=== PATIENT | female | born 1935 | race Caucasian/White ===

== ENCOUNTER 2017-06-02 18:05 | Observation (INO) | payer MEDICARE ==
[2017-06-02] MEDS ORDERED: ASPIRIN 325 MG TAB PO STA (18:43)
[2017-06-02 18:54] LABS: Basophils % (A) 0 %; CHCM 33.2; Eosinophils # (A) 0.2 k/uL (0-0.7); Eosinophils % (A) 2 %; HCT 37.4 % (34.0-46.0); HDW 2.19; HGB 12.3 gm/dL (11.4-16.0); Luc # (Auto) 0.18; Luc % (Auto) 2; Lymphocytes # (A) 2.1 k/uL (1.0-4.8); Lymphocytes % (A) 25 %; MCH 31.8 pg (25.0-35.0); MCHC 32.9 g/dL (31.0-37.0); MCV 96.6 fL (80.0-100.0); Mean Platelet Volume 7.4; Monocytes # (A) 0.4 k/uL (0-1.0); Monocytes % (A) 4 %; Neutrophils # (A) 5.4 k/uL (1.3-7.7); Neutrophils % (A) 66 %; RBC 3.88 m/uL (3.80-5.40); RDW 13.4 % (11.5-15.5); WBC 8.2 k/uL (3.8-10.6); WBC (Perox) 7.92
--- NOTE | 2017-06-02 18:58 | ED ---
Chest Pain HPI - General Chief Complaint: Chest Pain Stated Complaint: CHEST DISCOMFORT, DIZZINESS Time Seen by Provider: 06/02/17 18:12 Source: patient Mode of arrival: wheelchair Limitations: no limitations - History of Present Illness Initial Comments: Patient is an 82-year-old female presents with a chief complaint of chest pain started between 5:30 and 6:00 today. Patient was on her way to a family member' s house with her when she had an acute onset of pressure type chest pain that was substernal and radiated to her back. Patient admits to lightheadedness, diaphoresis during that time. The episode lasted about a half hour, and resolved spontaneously. Patient states that she had other similar episodes however they did not last long, and she did not have diaphoresis or lightheadedness along with them. Patient cannot describe any aggravating or alleviating factors. Currently patient is chest pain-free. Patient has never had a cardiac stress test. Patient is a significant history of hypertension and a questionable family cardiac history. MD Complaint: chest pain Onset/Timin -: minutes(s) Onset: during rest Pain Location: substernal Pain Radiation: back Severity: moderate Quality: heaviness Consistency: constant Improves With: nothing Worsens With: nothing Anginal Symptoms: diaphoresis, dyspnea Treatments Prior to Arrival: none - Related Data On Oral Contraceptives: No Home Medications Medication Instructions Recorded Confirmed Atenolol/Chlorthalidone 1 tab PO DAILY 07/15/14 06/02/17 [Atenolol-Chlorthal 50-25 Tb] Levothyroxine Sodium [Synthroid] 75 mcg PO DAILY 07/15/14 06/02/17 Lisinopril [Zestril] 5 mg PO DAILY 07/15/14 06/02/17 Calcium Carbonate [Calcium] 600 mg PO DAILY 06/02/17 06/02/17 Vit C/E/Zn/Coppr/Lutein/Zeaxan 1 cap PO DAILY 06/02/17 06/02/17 [Preservision Areds 2 Softgel] Allergies Allergy/AdvReac Type Severity Reaction Status Date / Time No Known Allergies Allergy Verified 06/02/17 19:49 Review of Systems ROS Statement: Those systems with pertinent positive or pertinent negative responses have been documented in the HPI. ROS Other: All systems not noted in ROS Statement are negative. Constitutional: Denies: fever, chills Eyes: Denies: vision change ENT: Denies: ear pain, throat pain Respiratory: Denies: dyspnea, wheezes Cardiovascular: Reports: chest pain Endocrine: Denies: fatigue Gastrointestinal: Denies: nausea, vomiting Genitourinary: Denies: dysuria Musculoskeletal: Reports: back pain Skin: Denies: rash Neurological: Denies: headache Psychiatric: Reports: as per HPI Hematological/Lymphatic: Reports: as per HPI Past Medical History Past Medical History: Hypertension History of Any Multi-Drug Resistant Organisms: None Reported Past Surgical History: Appendectomy, Cholecystectomy Past Anesthesia/Blood Transfusion Reactions: No Reported Reaction Past Psychological History: No Psychological Hx Reported Smoking Status: Never smoker Past Alcohol Use History: None Reported Past Drug Use History: None Reported General Exam Limitations: no limitations General appearance: alert, in no apparent distress Head exam: Present: atraumatic, normocephalic Eye exam: Present: normal appearance, PERRL ENT exam: Present: normal exam, normal oropharynx. Absent: mucous membranes dry Neck exam: Present: normal inspection Respiratory exam: Present: normal lung sounds bilaterally. Absent: respiratory distress, wheezes Cardiovascular Exam: Present: regular rate, normal rhythm, normal heart sounds GI/Abdominal exam: Present: soft. Absent: distended, tenderness Rectal exam: Present: deferred Extremities exam: Present: normal inspection. Absent: pedal edema, joint swelling Back exam: Present: normal inspection Neurological exam: Present: alert, oriented X3 Psychiatric exam: Present: normal affect, normal mood Skin exam: Present: warm, dry, intact Course Vital Signs 06/02/17 06/02/17 06/02/17 18:08 18:54 20:42 Temperature 96.7 F L 98.6 F Pulse Rate 65 66 56 L Respiratory 17 16 16 Rate Blood Pressure 156/67 138/71 187/79 O2 Sat by Pulse 97 100 100 Oximetry Chest Pain MDM - Core Measures AMI Core Measures Followed: Yes - MDM Patient presents with a chief complaint of chest pain with radiation to the back , diaphoresis, and lightheadedness. On initial evaluation patient is mildly hypertensive, otherwise vital signs are stable. EKG performed at 1815 shows sinus rhythm with PACs. Ventricular rate is 60 bpm. Segments appear to be within normal limits, when compared with previous study performed on 12/25/2014 , EKG is similar. Patient was given aspirin on initial evaluation. History and physical examination are consistent and concerning for ACS. We'll send basic, cardiac workup. We'll plan to admit patient for cardiac stress test. Patient is not currently experiencing any chest pain. 8:36 PM Lab evaluation this patient is unremarkable. Patient remained stable in the emergency department. Initial troponin is negative. Patient is a magnesium level I.5, this will be replaced in the emergency department. Currently pending call back from admitting physician. 8:58 PM I spoke with Dr. Mclean who accepts admission of this patient with consults to the on-call log chipper operator. Reviewed the care plan with patient, she and her family are agreeable. Disposition Clinical Impression: Moderate risk chest pain, Hypomagnesemia Disposition: ADMITTED IP TO THIS HOSP Condition: Good Instructions: Chest Pain (ED) Referrals: Julian Frazier MD [Primary Care Provider] - 1-2 days Decision to Admit Reason: Admit from EC Decision Date: 06/02/17 Decision Time: 21:00 - Out of Hospital Transfer - Req. Specs Out of Hospital Transfer - Requested Specifics: Telemetry Unit
[2017-06-02 19:00] LABS: INR 1.1 (<1.2); Prothrombin Time 10.7 sec (9.0-12.0)
[2017-06-02 19:03] LABS: Anion Gap 9 mmol/L; Blood Urea Nitrogen 25 mg/dL (7-17); Calcium 9.2 mg/dL (8.4-10.2); Carbon Dioxide 27 mmol/L (22-30); Chloride 98 mmol/L (98-107); Glucose 175 mg/dL (74-99); Magnesium 1.5 mg/dL (1.6-2.3); Non-African American GFR(MDRD) 54 (>60 ml/min/1.73 sqM); Potassium 3.3 mmol/L (3.5-5.1); Sodium 134 mmol/L (137-145)
[2017-06-02] MEDS ORDERED: NALOXONE 0.4 MG/ML 1 ML VIAL IV PRN (21:01)
[2017-06-02] MEDS: MAGNESIUM SULFATE-D5W PMX 1 GM in DEXTROSE/WATER 1 100ML.BAG IVPB SCH ×2 (21:11→23:35)
[2017-06-02 22:07] VITALS: BMI 21.9
[2017-06-03] MEDS ORDERED: LEVOTHYROXINE 75 MCG TAB PO SCH (06:30)
[2017-06-03 07:04] LABS: Basophils % (A) 0 %; CH 31.9; CHCM 33.3; Eosinophils # (A) 0.2 k/uL (0-0.7); Eosinophils % (A) 2 %; HCT 37.2 % (34.0-46.0); HDW 2.16; HGB 12.2 gm/dL (11.4-16.0); Luc # (Auto) 0.18; Luc % (Auto) 2; Lymphocytes # (A) 1.9 k/uL (1.0-4.8); Lymphocytes % (A) 22 %; MCH 31.6 pg (25.0-35.0); MCHC 32.8 g/dL (31.0-37.0); MCV 96.2 fL (80.0-100.0); Mean Platelet Volume 7.3; Monocytes # (A) 0.5 k/uL (0-1.0); Monocytes % (A) 6 %; Neutrophils # (A) 5.6 k/uL (1.3-7.7); Neutrophils % (A) 67 %; RBC 3.87 m/uL (3.80-5.40); WBC 8.2 k/uL (3.8-10.6)
[2017-06-03 07:31] LABS: Anion Gap 7 mmol/L; Blood Urea Nitrogen 17 mg/dL (7-17); Calcium 9.2 mg/dL (8.4-10.2); Carbon Dioxide 29 mmol/L (22-30); Chloride 100 mmol/L (98-107); Glucose 87 mg/dL (74-99); Non-African American GFR(MDRD) >60 (>60 ml/min/1.73 sqM); Potassium 3.5 mmol/L (3.5-5.1); Sodium 136 mmol/L (137-145)
[2017-06-03 08:19] VITALS: RESP 14
[2017-06-03] MEDS ORDERED: CALCIUM CARB-MAG CARB-FOLIC 1 EACH TAB PO SCH (08:30)
--- NOTE | 2017-06-03 08:30 | P.HPIM ---
History of Present Illness Chief complaint: Chest pain. Weakness History of present illness: Patient is an 82-year-old female who presented yesterday to the emergency room. Apparently the patient and her were driving in the car to visit family members when she developed a lower right chest discomfort that radiated to the back. The pain became more severe when she developed lightheadedness with dizziness and sweating. Subsequent to that she was driven to the emergency room and in the process the pain eventually dissipated. She denied any nausea or vomiting. No pleuritic component to the pain. She states she was somewhat short of breath with this. Patient generally over the past few weeks has been in her normal state of health. She does get some dyspnea with exertion but has not had any of this pain recently although she states she's had some episodes over the past months intermittently that were not as severe and did not last as long. Past medical history: Patient does not have history of myocardial infarction or stroke. Patient does have history of hypertension. Hypothyroidism Hyperlipidemia History of colon polyp. Surgical history: Patient has had bilateral cataract surgery. Cholecystectomy. Appendectomy. Medications: Lisinopril 5 mg daily Synthroid 75 g daily Atenolol-chlorthalidone 50-25 one daily Vitamin supplements PreserVision 1 daily Calcium carbonate 600 mg daily. No known ALLERGIES Review of systems: Patient denies any unusual headaches. No visual changes. No nausea or vomiting. No urinary or bowel symptomatology. No unusual leg edema. Chest pain is listed in the history and present illness. No cough or fevers. Family history: There is a history of diabetes with her mother. No history of heart disease or cancer. Social history: Patient lives locally with her . No history of smoking. No history of any excessive alcohol usage. Physical examination: The patient is up in bed, alert and oriented. at bedside Vital signs reveal temperature of 98.3 with a pulse ranging from a low of 48 up to 89. Respirations are 14 and normal. Blood pressure is 165/68 and she is 93 % saturated on 2 L. Head and neck exam is unremarkable. No carotid bruits or adenopathy detected. Breast and pelvic exam is deferred. Lungs are clear to auscultation. No definite chest wall tenderness elicited. Abdomen is mildly obese but soft and nontender without organomegaly or pulsatile lesions. Extremities reveal diffuse varicosities of the lower extremities but no unusual edema or tenderness. Neurologically she is alert and oriented. Cranial nerves intact. No focal weakness noted. Laboratory results: CBC has been unremarkable 2 with a white count of 8.2 and hemoglobin 12.2 and a platelet count of around 250. INR is 1.1. Initial sodium and potassium were slightly low at 134 and 3.3 respectively. These have improved to 136 and 3.5 this morning. BUN is 17 with a creatinine of 0.81 given her GFR greater than 60. Initial blood sugar was 175 but this morning's 87. Magnesium was mildly low at 1.5. Troponins 3 were less than 0.012 and pro-BNP 244. EKG showed sinus bradycardia without acute ischemic changes. Impressions: 1. Severe chest pain without EKG or enzyme changes at this time. 2. Comorbidities as stated above with hypertension and borderline obesity 3. Hypothyroidism on replacement therapy 4. Surgical history with previous bilateral cataracts, cholecystectomy and appendectomy. 5. Mild hypomagnesemia and hypokalemia Plans: Patient is being monitored. She is being kept nothing by mouth until seen by cardiology. Reasons discussed with patient and . We'll await further recommendations from cardiology regarding evaluation and treatment. Patient's questions were answered to the best my ability. Past Medical History Past Medical History: Hypertension, Osteoarthritis (OA) History of Any Multi-Drug Resistant Organisms: None Reported Past Surgical History: Appendectomy, Cholecystectomy Additional Past Surgical History / Comment(s): cataract removed bilat. Past Anesthesia/Blood Transfusion Reactions: No Reported Reaction Past Psychological History: No Psychological Hx Reported Smoking Status: Never smoker Past Alcohol Use History: None Reported Past Drug Use History: None Reported - Past Family History Mother Family Medical History: Dementia, Diabetes Mellitus Father Family Medical History: CVA/TIA Medications and Allergies Home Medications Medication Instructions Recorded Confirmed Type Atenolol/Chlorthalidone 1 tab PO DAILY 07/15/14 06/02/17 History [Atenolol-Chlorthal 50-25 Tb] Levothyroxine Sodium [Synthroid] 75 mcg PO DAILY 07/15/14 06/02/17 History Lisinopril [Zestril] 5 mg PO DAILY 07/15/14 06/02/17 History Calcium Carbonate [Calcium] 600 mg PO DAILY 06/02/17 06/02/17 History Vit C/E/Zn/Coppr/Lutein/Zeaxan 1 cap PO DAILY 06/02/17 06/02/17 History [Preservision Areds 2 Softgel] Allergies Allergy/AdvReac Type Severity Reaction Status Date / Time No Known Allergies Allergy Verified 06/02/17 22:14 Physical Exam Vitals: Vital Signs Temp Pulse Pulse Resp BP BP Pulse Ox 06/03/17 04:00 52 L 16 06/03/17 03:51 98.0 F 56 L 16 140/67 100 06/02/17 23:04 48 L 18 06/02/17 21:54 98.0 F 64 16 174/80 96 06/02/17 21:20 140/71 06/02/17 21:19 60 16 171/75 99 06/02/17 20:42 98.6 F 56 L 16 187/79 100 06/02/17 18:54 66 16 138/71 100 06/02/17 18:08 96.7 F L 65 17 156/67 97 Intake and Output 06/02/17 06/03/17 06/03/17 22:59 06:59 14:59 Intake Total 100 200 Balance 100 200 Intake: Intake, IV Titration 100 100 Amount Magnesium Sulfate-D5w Pmx 100 100 1 gm In Dextrose/Water 1 100ml.bag @ 100 mls/hr IVPB Q1H [facility] Rx#: [id number] Oral 100 Other: Voiding Method Toilet # Voids 1 2 Weight 82.5 kg Results CBC & Chem 7: 06/03/17 06:24 06/03/17 06:24 Labs: Abnormal Lab Results - Last 24 Hours (Table) 06/02/17 06/03/17 Range/Units 18:20 06:24 Sodium 134 L 136 L (137-145) mmol/L Potassium 3.3 L (3.5-5.1) mmol/L BUN 25 H (7-17) mg/dL Glucose 175 H (74-99) mg/dL Magnesium 1.5 L (1.6-2.3) mg/dL Thrombosis Risk Factor Assmnt - Choose All That Apply Other Risk Factors: Yes Each Risk Factor Represents 3 Points: Age 75 years or older Thrombosis Risk Factor Assessment Total Risk Factor Score: 3 Thrombosis Risk Factor Assessment Level: Moderate Risk
[2017-06-03] MEDS ORDERED: POTASSIUM CHLORIDE ER 20 MEQ TAB.ER PO STA (08:55)
[2017-06-03] MEDS ORDERED: CALCIUM CARBONATE 500 MG CHEWABLE PO SCH (09:00)
[2017-06-03] MEDS ORDERED: VIT A,C & E-LUTEIN-MINERALS 1 EACH TAB PO SCH (09:00)
[2017-06-03] MEDS ORDERED: LISINOPRIL 5 MG TAB PO SCH (09:00)
[2017-06-03] MEDS ORDERED: CHLORTHALIDONE 25 MG TAB PO SCH (09:00)
[2017-06-03] MEDS ORDERED: ATENOLOL 50 MG TAB PO SCH (09:00)
--- NOTE | 2017-06-03 10:03 | P.CRDCN ---
History of Present Illness Consult date: 06/03/17 Consult reason: chest pain History of present illness: This is an 82-year-old female with history of high blood pressure and hypothyroidism. She has never seen a public information relations manager for any reason. She has no history of coronary artery disease or ME. She states she was driving in her car with her when she had an acute onset of mid back pain that radiated through to her chest. The pain is described as heaviness and was associated with mild lightheadedness and nausea, no vomiting. The patient denies palpitations. She states she's had these episodes occur in the past and usually goes away on its own she has never sought medical attention. This time the pain persisted so she decided to come to the emergency room. The pain resolved on its own once she was here. EKG indicates a sinus mechanism bradycardia and low 50s. Labs indicated a hemoglobin of 12.2, sodium 136, potassium 3.5, BUNs 17 and creatinine 0.81, proBNP 244, troponins negative 3, magnesium 1.5 at admission has been corrected with 1 g IV piggyback no repeat available at this time. No chest x-ray was performed. All symptoms resolved on their own, she has no complaints at this time. Telemetry monitoring overnight shows no significant arrhythmia of note. Review of Systems REVIEW OF SYSTEMS: Patient denies any chest discomfort. No shortness of breath. No diaphoresis. Denies headache, dizziness, blurred vision, double vision. No dyspnea on exertion. Patient denies any stomach discomfort. No nausea, vomiting. No hematochezia. No hematemesis. Denies any black stools or blood in his stools. No syncope. No palpitations. No cough. No recent fever or chills. Denies dysuria or hematuria. No muscle weakness or numbness. Past Medical History Past Medical History: Hypertension, Osteoarthritis (OA) History of Any Multi-Drug Resistant Organisms: None Reported Past Surgical History: Appendectomy, Cholecystectomy Additional Past Surgical History / Comment(s): cataract removed bilat. Past Anesthesia/Blood Transfusion Reactions: No Reported Reaction Past Psychological History: No Psychological Hx Reported Smoking Status: Never smoker Past Alcohol Use History: None Reported Past Drug Use History: None Reported - Past Family History Mother Family Medical History: Dementia, Diabetes Mellitus Father Family Medical History: CVA/TIA Medications and Allergies Home Medications Medication Instructions Recorded Confirmed Type Atenolol/Chlorthalidone 1 tab PO DAILY 07/15/14 06/02/17 History [Atenolol-Chlorthal 50-25 Tb] Levothyroxine Sodium [Synthroid] 75 mcg PO DAILY 07/15/14 06/02/17 History Lisinopril [Zestril] 5 mg PO DAILY 07/15/14 06/02/17 History Calcium Carbonate [Calcium] 600 mg PO DAILY 06/02/17 06/02/17 History Vit C/E/Zn/Coppr/Lutein/Zeaxan 1 cap PO DAILY 06/02/17 06/02/17 History [Preservision Areds 2 Softgel] Allergies Allergy/AdvReac Type Severity Reaction Status Date / Time No Known Allergies Allergy Verified 06/02/17 22:14 Physical Exam Vitals: Vital Signs Temp Pulse Pulse Resp BP BP Pulse Ox 06/03/17 04:00 52 L 16 06/03/17 03:51 98.0 F 56 L 16 140/67 100 06/02/17 23:04 48 L 18 06/02/17 21:54 98.0 F 64 16 174/80 96 06/02/17 21:20 140/71 06/02/17 21:19 60 16 171/75 99 06/02/17 20:42 98.6 F 56 L 16 187/79 100 06/02/17 18:54 66 16 138/71 100 06/02/17 18:08 96.7 F L 65 17 156/67 97 Intake and Output 06/02/17 06/03/17 06/03/17 22:59 06:59 14:59 Intake Total 100 200 Balance 100 200 Intake: Intake, IV Titration 100 100 Amount Magnesium Sulfate-D5w Pmx 100 100 1 gm In Dextrose/Water 1 100ml.bag @ 100 mls/hr IVPB Q1H [facility] Rx#: [id number] Oral 100 Other: Voiding Method Toilet # Voids 1 2 Weight 82.5 kg GENERAL: This is a 82-year-old female in no apparent distress at the time of my examination. HEENT: Head is atraumatic, normocephalic. Pupils are equal, round. Sclerae anicteric. Conjunctivae are clear. Mucous membranes of the mouth are moist. Neck is supple. There is no jugular venous distention. No carotid bruit is heard. LUNGS: Clear to auscultation and precussion. No chest wall tenderness is noted on palpation or with deep breathing. HEART: Regular rate and rhythm without murmurs, rubs or gallops. S1 and S2 heard. ABDOMEN: Soft, nontender. Bowel sounds are heard. No organomegaly noted. EXTREMITIES: 2+ peripheral pulses with no evidence of peripheral edema and no calf tenderness noted]. NEUROLOGIC: Patient is awake, alert and oriented x3. Results 06/03/17 06:24 06/03/17 06:24 Cardiac Enzymes 06/02/17 06/03/17 Range/Units 18:20 00:32 Troponin I <0.012 <0.012 (0.000-0.034) ng/mL Coagulation 06/02/17 Range/Units 18:20 PT 10.7 (9.0-12.0) sec CBC 06/02/17 06/03/17 Range/Units 18:20 06:24 WBC 8.2 8.2 (3.8-10.6) k/uL RBC 3.88 3.87 (3.80-5.40) m/uL Hgb 12.3 12.2 (11.4-16.0) gm/dL Hct 37.4 37.2 (34.0-46.0) % Plt Count 255 238 (150-450) k/uL Comprehensive Metabolic Panel 06/02/17 06/03/17 Range/Units 18:20 06:24 Sodium 134 L 136 L (137-145) mmol/L Potassium 3.3 L 3.5 (3.5-5.1) mmol/L Chloride 98 100 (98-107) mmol/L Carbon Dioxide 27 29 (22-30) mmol/L BUN 25 H 17 (7-17) mg/dL Creatinine 0.98 0.81 (0.52-1.04) mg/dL Glucose 175 H 87 (74-99) mg/dL Calcium 9.2 9.2 (8.4-10.2) mg/dL Current Medications Generic Name Dose Route Start Last Admin Trade Name Freq PRN Reason Stop Dose Admin Atenolol 50 mg 06/03/17 09:00 Tenormin PO DAILY DENNIS Calcium Carbonate/Glycine 500 mg 06/03/17 09:00 Tums PO DAILY [facility]IS Chlorthalidone 25 mg 06/03/17 09:00 [place] PO DAILY [facility] Levothyroxine Sodium 75 mcg 06/03/17 06:30 06/03/17 06:45 Synthroid PO 75 mcg DAILY@0630 DENNIS Administration Lisinopril 5 mg 06/03/17 09:00 Zestril PO DAILY [facility] Multivitamins/Minerals 1 each 06/03/17 09:00 Ivite PO DAILY DENNIS Naloxone HCl 0.2 mg 06/02/17 21:01 Narcan IV Q2M PRN Opioid Reversal Intake and Output 06/02/17 06/03/17 06/03/17 22:59 06:59 14:59 Intake Total 100 200 Balance 100 200 Intake: Intake, IV Titration 100 100 Amount Magnesium Sulfate-D5w Pmx 100 100 1 gm In Dextrose/Water 1 100ml.bag @ 100 mls/hr IVPB Q1H [facility] Rx#: [id number] Oral 100 Other: Voiding Method Toilet # Voids 1 2 Weight 82.5 kg 06/03/17 06:24 06/03/17 06:24 - EKG Interpretation EKG: sinus rhythm, normal QRS, normal ST/T EKG shows: bradycardia Assessment and Plan Plan: ASSESSMENT 1. Chest pain at rest, atypical 2. History of essential hypertension 3. Obesity, BMI 31.2 4. History of hypothyroidism 5. Electrolyte abnormality, hypokalemia and hypomagnesemia PLAN Obtain echocardiogram and stress echo to evaluate left ventricular function and coronary artery stenosis/ischemia. Replace electrolytes, magnesium has been supplemented with 1 g IV piggyback. We will administer 20 MEQ use of KCl at this time. If the stress test and echocardiogram are negative the patient is stable to be discharged home. She can follow-up with Dr. DANAY Amezquita in the office as needed. We thank you for this consultation and allowing us to participate in the care of this patient. Nurse Practitioner note has been reviewed, I agree with a documented findings and plan of care. Patient was seen and examined.
[2017-06-03 12:04] VITALS: BP 140/86; PULSE 61; TEMP 98.4
--- NOTE | 2017-06-03 12:06 | ECHOS ---
DATE OF SERVICE: 06/03/2017 TYPE OF REPORT: STRESS ECHOCARDIOGRAM INDICATION: Chest pain. BASELINE HEART RATE: 64 BASELINE BLOOD PRESSURE: 145/84 MAXIMUM HEART RATE: 142 MAXIMUM BLOOD PRESSURE: 160/72 85% MPHR: 118 100% MPHR: 139 METS: - MAXIMUM STAGE REACHED: I TOTAL EXERCISE TIME: 3:00 Baseline EKG revealed a normal sinus rhythm without significant ST-T wave changes. Patient walked for 3 minutes on standard [place] protocol. Achieved a maximum heart rate of 142 beats per minute. Developed fatigue and shortness of breath. She had upsloping nonspecific ST-segment changes, not suggestive of ischemia. She did not have any angina. By EKG criteria, this is a negative stress test with limited exercise capacity. Baseline echo images revealed a normal wall motion, wall thickening of all segments. At peak exercise, there was good augmentation of left ventricular wall motion, wall thickening of all segments suggesting that there is no evidence of stress induced ischemia on this study. FINAL IMPRESSION: 1. By EKG criteria, this is a negative stress test with limited exercise capacity. 2. Limited exercise capacity with a normal stress echocardiogram. SHAHAB
--- NOTE | 2017-06-03 19:47 | ECHOF ---
Referral Reason:chest pain MEASUREMENTS -------- HEIGHT: 162.6 cm WEIGHT: 82.1 kg BP: 140/67 IVSd: 0.8 cm (0.6 - 1.1) LVIDd: 4.1 cm (3.9 - 5.3) LVPWd: 0.9 cm (0.6 - 1.1) IVSs: 1.4 cm LVIDs: 2.3 cm LVPWs: 1.8 cm LAESV Index (A-L): 15.86 ml/m Ao Diam: 2.8 cm (2.0 - 3.7) AV Cusp: 2.0 cm (1.5 - 2.6) LA Diam: 2.8 cm (2.7 - 3.8) MV EXCURSION: 17.007 mm (> 18.000) MV EF SLOPE: 120 mm/s (70 - 150) EPSS: 0.8 cm MV E Edwardo: 0.89 m/s MV DecT: 226 ms MV A Edwardo: 0.90 m/s MV E/A Ratio: 0.99 AR PHT: 148 ms RAP: 5.00 mmHg RVSP: 25.60 mmHg FINDINGS -------- Sinus rhythm. This was a technically good study. Left ventricular wall thickness is normal. Overall left ventricular systolic function is normal with, an EF between 55 - 60 %. The right ventricle is normal in size and function. The left atrium is normal in size. The right atrium is normal in size. Aortic valve is trileaflet and is mildly thickened. The mitral valve leaflets are mildly thickened. Mild mitral regurgitation is present. Mild tricuspid regurgitation present. The right ventricular systolic pressure, as measured by Doppler, is 25.60mmHg. Pulmonic valve appears structurally normal. The aortic root size is normal. The pericardium is normal. CONCLUSIONS -------- 1. Sinus rhythm. 2. The aortic root size is normal. 3. The pericardium is normal. 4. This was a technically good study. 5. Left ventricular wall thickness is normal. 6. The right ventricle is normal in size and function. 7. The left atrium is normal in size. 8. The right atrium is normal in size. 9. The mitral valve leaflets are mildly thickened. 10. The right ventricular systolic pressure, as measured by Doppler, is 25.60mmHg. 11. Pulmonic valve appears structurally normal. DISCHARGE RN: Tammy De La Cruz RDCS
--- NOTE | 2017-06-07 10:58 | DS ---
Mrs. Pierce is an 82 -year-old female who presented to the emergency room and placed under observation and admitted to observation on the may when she presented with chest pain that radiated to the back. Please refer to history and physical examination. Other underlying risk factors include history of hypertension and hyperlipidemia along with comorbidities of hypothyroidism. The patient was monitored on the ventilator, serial EKG and enzymes remained unremarkable. Her potassium initially was 3.3 which increased to 3.5 and she did have a slightly low magnesium of 1.5 on presentation. She was seen in consultation by [facility] Dr. Henrry Amezquita. Please refer to his consultation. An echocardiogram revealed sinus rhythm. Ejection fraction was between 55 and 60%. The left atrium was normal in size. The patient further underwent a stress test with stress echo. The stress test did not show ST segment changes consistent with ischemia. She had not had any angina and was negative despite some limited exercise capacity. The stress echo part revealed normal wall motion and wall thickening of all segments and was considered as a negative stress test. Per cardiology, the patient was able to be discharged to home. Continue Atenolol and HCTZ 50/25 one daily. She also has Calcium carbonate 600 mg daily. Levothyroxine 75 mcg daily, Lisinopril 5 mg daily, PreserVision vitamins daily, ibuprofen was to be continued if needed along with Tramadol and follow-up in our office and with myself and cardiology over the next week. DISCHARGE DIAGNOSES: 1. Chest pain, likely related to underlying chest wall costochondral pain. Workup for ischemic cardiac disease has been negative. 2. She also has risk factors with obesity, hyperlipidemia, hypertension. 3. She does have underlying hypothyroidism, on replacement. 4. She also has history of colon polyp and previous surgical history that includes bilateral cataracts, cholecystectomy and appendectomy. Activity and diet as tolerated. MTDD
== END 2017-06-03 14:25 | disposition home or self-care (01) ==
LOC: EC 18:05 → 3OBS 21:01
PROVIDERS: ADMIT Internal Medicine; ATTEND Internal Medicine
DX: R07.89 Other chest pain (principal); R42 Dizziness and giddiness; R06.00 Dyspnea, unspecified; E78.5 Hyperlipidemia, unspecified; I83.93 Asymptomatic varicose veins of bilateral lower extremities; E87.6 Hypokalemia; E66.9 Obesity, unspecified; I10 Essential (primary) hypertension; E83.42 Hypomagnesemia; E03.9 Hypothyroidism, unspecified; M54.9 Dorsalgia, unspecified; R11.0 Nausea; R00.1 Bradycardia, unspecified; M19.90 Unspecified osteoarthritis, unspecified site; Z79.899 Other long term (current) drug therapy; Z68.31 Body mass index [BMI] 31.0-31.9, adult; Z86.010 Personal history of colon polyps
CPT/HCPCS: 96366; 96365; 99285; 36415; 93005; 93017; 93306; 93350; 83880; 80048 ×2; 83735; 84484 ×2; 85025 ×2; 85610; G0378 ×2; J3475

== ENCOUNTER → 2017-06-14 | Outpatient (CLI) | payer MEDICARE ==
--- NOTE | 2017-06-16 10:58 | MM ---
Reason for exam: screening (asymptomatic). Last mammogram was performed 2 years and 7 months ago. History: Patient is postmenopausal. Physical Findings: A clinical breast exam by your physician is recommended on an annual basis and results should be correlated with mammographic findings. MG 3D Screening Mammo W/Cad Bilateral CC and MLO view(s) were taken. Prior study comparison: November 13, 2014, bilateral MG screening mammo w CAD. November 12, 2013, bilateral digital screening mammo w/CAD. The breast tissue is heterogeneously dense. This may lower the sensitivity of mammography. No suspicious abnormality. No significant changes when compared with prior studies. ASSESSMENT: Negative, BI-RAD 1 RECOMMENDATION: Routine screening mammogram of both breasts in 1 year.
== END | disposition home or self-care (01) ==
LOC: RADMAMWWP 13:07
PROVIDERS: ATTEND Obstetrics & Gynecology
DX: Z12.31 Encounter for screening mammogram for malignant neoplasm of breast (principal)
CPT/HCPCS: 77063; G0202

== ENCOUNTER 2019-08-10 20:47 | Inpatient (IN) | payer MEDICARE ==
[2019-08-10] MEDS ORDERED: ONDANSETRON 4 MG/2 ML VIAL IVP STA (21:39)
--- NOTE | 2019-08-10 21:57 | ED ---
Nausea/Vomiting/Diarrhea HPI - General Chief complaint: Nausea/Vomiting/Diarrhea Stated complaint: n/v for a week Time Seen by Provider: 08/10/19 21:39 Source: patient, family Mode of arrival: wheelchair Limitations: no limitations - History of Present Illness Initial comments: Patient is an 84-year-old woman who presents to be evaluated for nausea and for not feeling well. She states that approximately 4 days ago she started to feel slightly dizzy and nauseated. She was seen at an emergency department [place], where she had tests performed and was told she was dehydrated. She was given some IV fluids and then discharged. She followed up with her clinic physician on Tuesday, she states she was told she had a urinary tract infection and took a 3 day course of antibiotics which finished yesterday. The patient states that through the course of today she has continued to have nausea and has had a couple of episodes of vomiting and of dry heaves. She has not seen any coffee-ground or bloody emesis. She has not had abdominal pain. She states she has not had any change in bowel movements or urination. MD complaint: nausea -: days(s) Description of Vomiting: food contents Associated Abdominal Pain: No Severity scale (1-10): 0 Improves with: none Worsens with: none Context: recent antibiotic use Associated Symptoms: malaise - Related Data Home Medications Medication Instructions Recorded Confirmed Atenolol/Chlorthalidone 1 tab PO DAILY 07/15/14 08/10/19 [Atenolol-Chlorthal 50-25 Tb] Levothyroxine Sodium [Synthroid] 75 mcg PO DAILY 07/15/14 08/10/19 Lisinopril [Zestril] 5 mg PO DAILY 07/15/14 08/10/19 Calcium Carbonate [Calcium] 600 mg PO DAILY 06/02/17 08/10/19 Vit C/E/Zn/Coppr/Lutein/Zeaxan 1 cap PO BID 06/02/17 08/10/19 [Preservision Areds 2 Softgel] Allergies Allergy/AdvReac Type Severity Reaction Status Date / Time No Known Allergies Allergy Verified 08/10/19 22:02 Review of Systems ROS Statement: Those systems with pertinent positive or pertinent negative responses have been documented in the HPI. ROS Other: All systems not noted in ROS Statement are negative. Constitutional: Denies: fever, chills, weakness Eyes: Denies: vision change Respiratory: Denies: cough, dyspnea Cardiovascular: Denies: chest pain, palpitations, orthopnea, syncope Endocrine: Reports: fatigue Gastrointestinal: Reports: nausea, vomiting. Denies: abdominal pain, diarrhea, constipation, melena, hematochezia Genitourinary: Denies: dysuria, hematuria Musculoskeletal: Denies: back pain Skin: Denies: rash Neurological: Denies: headache, weakness, numbness, paresthesias, confusion Past Medical History Past Medical History: Hypertension, Osteoarthritis (OA) History of Any Multi-Drug Resistant Organisms: None Reported Past Surgical History: Appendectomy, Cholecystectomy Additional Past Surgical History / Comment(s): cataract removed bilat. Past Anesthesia/Blood Transfusion Reactions: No Reported Reaction Past Psychological History: No Psychological Hx Reported Smoking Status: Never smoker Past Alcohol Use History: None Reported Past Drug Use History: None Reported - Past Family History Mother Family Medical History: Dementia, Diabetes Mellitus Father Family Medical History: CVA/TIA General Exam Limitations: no limitations General appearance: alert, in no apparent distress Head exam: Present: atraumatic, normocephalic Eye exam: Present: normal appearance, PERRL, EOMI. Absent: scleral icterus, conjunctival injection, nystagmus ENT exam: Present: normal oropharynx Respiratory exam: Present: normal lung sounds bilaterally. Absent: respiratory distress, wheezes, rales, rhonchi, stridor Cardiovascular Exam: Present: regular rate, normal rhythm, normal heart sounds. Absent: systolic murmur, diastolic murmur, rubs, gallop GI/Abdominal exam: Present: soft. Absent: distended, tenderness, guarding, rebound, rigid, mass Extremities exam: Present: normal inspection, normal capillary refill. Absent: pedal edema, calf tenderness Back exam: Present: normal inspection. Absent: CVA tenderness (R), CVA tenderness (L) Neurological exam: Present: alert Skin exam: Present: warm, dry, intact, normal color. Absent: rash Course Vital Signs 08/10/19 08/10/19 20:59 23:42 Temperature 98.0 F Pulse Rate 58 L 56 L Respiratory 20 18 Rate Blood Pressure 145/60 134/65 O2 Sat by Pulse 98 97 Oximetry Medical Decision Making - Lab Data Result diagrams: 08/10/19 22:54 08/10/19 22:54 Lab Results 08/10/19 08/10/19 08/10/19 Range/Units 22:54 22:54 22:54 WBC 12.2 H (3.8-10.6) k/uL RBC 3.91 (3.80-5.40) m/uL Hgb 12.2 (11.4-16.0) gm/dL Hct 35.6 (34.0-46.0) % MCV 91.0 (80.0-100.0) fL MCH 31.1 (25.0-35.0) pg MCHC 34.2 (31.0-37.0) g/dL RDW 11.8 (11.5-15.5) % Plt Count 288 (150-450) k/uL Neutrophils % 84 % Lymphocytes % 10 % Monocytes % 4 % Eosinophils % 1 % Basophils % 0 % Neutrophils # 10.3 H (1.3-7.7) k/uL Lymphocytes # 1.3 (1.0-4.8) k/uL Monocytes # 0.4 (0-1.0) k/uL Eosinophils # 0.1 (0-0.7) k/uL Basophils # 0.0 (0-0.2) k/uL Sodium 120 L (137-145) mmol/L Potassium 4.0 (3.5-5.1) mmol/L Chloride 86 L (98-107) mmol/L Carbon Dioxide 24 (22-30) mmol/L Anion Gap 10 mmol/L BUN 16 (7-17) mg/dL Creatinine 0.93 (0.52-1.04) mg/dL Est GFR (CKD-EPI)AfAm 66 (>60 ml/min/1.73 sqM) Est GFR (CKD-EPI)NonAf 57 (>60 ml/min/1.73 sqM) Glucose 125 H (74-99) mg/dL Plasma Lactic Acid Jorge L 0.9 (0.7-2.0) mmol/L Calcium 9.7 (8.4-10.2) mg/dL Total Bilirubin 0.5 (0.2-1.3) mg/dL AST 21 (14-36) U/L ALT 20 (9-52) U/L Alkaline Phosphatase 74 (38-126) U/L Total Protein 7.0 (6.3-8.2) g/dL Albumin 4.0 (3.5-5.0) g/dL Amylase 47 (30-110) U/L Lipase 44 (23-300) U/L Urine Color Urine Appearance (Clear) Urine pH (5.0-8.0) Ur Specific [place] (1.001-1.035) Urine Protein (Negative) Urine Glucose (UA) (Negative) Urine Ketones (Negative) Urine Blood (Negative) Urine Nitrite (Negative) Urine Bilirubin (Negative) Urine Urobilinogen (<2.0) mg/dL Ur Leukocyte Esterase (Negative) Urine RBC (0-5) /hpf Urine WBC (0-5) /hpf Ur Squamous Epith Cells (0-4) /hpf Urine Bacteria (None) /hpf Urine Mucus (None) /hpf 08/10/19 Range/Units 23:10 WBC (3.8-10.6) k/uL RBC (3.80-5.40) m/uL Hgb (11.4-16.0) gm/dL Hct (34.0-46.0) % MCV (80.0-100.0) fL MCH (25.0-35.0) pg MCHC (31.0-37.0) g/dL RDW (11.5-15.5) % Plt Count (150-450) k/uL Neutrophils % % Lymphocytes % % Monocytes % % Eosinophils % % Basophils % % Neutrophils # (1.3-7.7) k/uL Lymphocytes # (1.0-4.8) k/uL Monocytes # (0-1.0) k/uL Eosinophils # (0-0.7) k/uL Basophils # (0-0.2) k/uL Sodium (137-145) mmol/L Potassium (3.5-5.1) mmol/L Chloride (98-107) mmol/L Carbon Dioxide (22-30) mmol/L Anion Gap mmol/L BUN (7-17) mg/dL Creatinine (0.52-1.04) mg/dL Est GFR (CKD-EPI)AfAm (>60 ml/min/1.73 sqM) Est GFR (CKD-EPI)NonAf (>60 ml/min/1.73 sqM) Glucose (74-99) mg/dL Plasma Lactic Acid Jorge L (0.7-2.0) mmol/L Calcium (8.4-10.2) mg/dL Total Bilirubin (0.2-1.3) mg/dL AST (14-36) U/L ALT (9-52) U/L Alkaline Phosphatase (38-126) U/L Total Protein (6.3-8.2) g/dL Albumin (3.5-5.0) g/dL Amylase (30-110) U/L Lipase (23-300) U/L Urine Color Yellow Urine Appearance Clear (Clear) Urine pH 6.5 (5.0-8.0) Ur Specific [place] 1.014 (1.001-1.035) Urine Protein Trace H (Negative) Urine Glucose (UA) Negative (Negative) Urine Ketones 1+ H (Negative) Urine Blood Trace H (Negative) Urine Nitrite Negative (Negative) Urine Bilirubin Negative (Negative) Urine Urobilinogen <2.0 (<2.0) mg/dL Ur Leukocyte Esterase Negative (Negative) Urine RBC 1 (0-5) /hpf Urine WBC 1 (0-5) /hpf Ur Squamous Epith Cells 2 (0-4) /hpf Urine Bacteria Few H (None) /hpf Urine Mucus Rare H (None) /hpf - EKG Data -: EKG Interpreted by Mi EKG shows normal: sinus rhythm, axis (Normal), intervals (Normal), QRS complexes (Normal), ST-T waves (Normal) Rate: bradycardia (Rate 59 bpm) Interpretation: normal EKG Disposition Clinical Impression: Hyponatremia, Nausea Disposition: ADMITTED IP TO THIS HOSP Condition: Fair Is patient prescribed a controlled substance at d/c from ED?: No Referrals: Bren Webster NPC [REFERRING] - 1-2 days
[2019-08-10 23:09] LABS: Basophils % (A) 0 %; Eosinophils # (A) 0.1 k/uL (0-0.7); Eosinophils % (A) 1 %; HCT 35.6 % (34.0-46.0); HGB 12.2 gm/dL (11.4-16.0); Lymphocytes # (A) 1.3 k/uL (1.0-4.8); Lymphocytes % (A) 10 %; MCH 31.1 pg (25.0-35.0); MCHC 34.2 g/dL (31.0-37.0); Mean Platelet Volume 5.7; Monocytes # (A) 0.4 k/uL (0-1.0); Monocytes % (A) 4 %; Neutrophils # (A) 10.3 k/uL (1.3-7.7); Neutrophils % (A) 84 %; Platelet Count 288 k/uL (150-450); RBC 3.91 m/uL (3.80-5.40); RDW 11.8 % (11.5-15.5); WBC 12.2 k/uL (3.8-10.6)
[2019-08-10 23:25] LABS: Calcium 9.7 mg/dL (8.4-10.2); Total Bilirubin 0.5 mg/dL (0.2-1.3)
[2019-08-10 23:53] LABS: Appearance,Urine Clear (Clear); Bacteria,Urine Few /hpf; Bilirubin,Urine Negative (Negative); Blood,Urine Trace (Negative); Color,Urine Yellow; Glucose,Urine (UA) Negative (Negative); Ketones,Urine 1+ (Negative); Leukocyte Esterase,Urine Negative (Negative); Mucus,Urine Rare /hpf; Nitrite,Urine Negative (Negative); PH, Urine 6.5 (5.0-8.0); Protein,Urine Trace (Negative); RBC,Urine 1 /hpf (0-5); Specific Gravity,Urine 1.014 (1.001-1.035); Squamous Epithelial Cell,Urine 2 /hpf (0-4); Urobilinogen,Urine <2.0 mg/dL (<2.0); WBC,Urine 1 /hpf (0-5)
[2019-08-11] MEDS ORDERED: SODIUM CHLORIDE 0.9% 1,000 ML IV STA (00:04)
[2019-08-11] MEDS ORDERED: SODIUM CHLORIDE 0.9% 500 ML 500 ML IV STA (00:04)
[2019-08-11] MEDS ORDERED: ONDANSETRON 4 MG/2 ML VIAL IVP PRN (00:52)
[2019-08-11] MEDS ORDERED: ACETAMINOPHEN TAB 325 MG TAB PO PRN (00:52)
[2019-08-11] MEDS ORDERED: DOCUSATE 100 MG CAP PO PRN (00:52)
[2019-08-11] MEDS ORDERED: NALOXONE 0.4 MG/ML 1 ML VIAL IV PRN (00:52)
[2019-08-11 02:31] LABS: Creatinine,Urine Random 90.3 mg/dL
[2019-08-11] MEDS: SODIUM CHLORIDE 0.9% 1,000 ML IV SCH ×3 (05:30→21:30)
[2019-08-11] MEDS: LEVOTHYROXINE 75 MCG TAB PO SCH (06:44)
[2019-08-11] MEDS: CALCIUM CARBONATE 500 MG CHEWABLE PO SCH (10:20)
[2019-08-11] MEDS: FAMOTIDINE 20 MG TAB PO SCH ×2 (10:20→21:30)
[2019-08-11] MEDS: LISINOPRIL 5 MG TAB PO SCH (10:20)
[2019-08-11 12:09] VITALS: BMI 29.6
--- NOTE | 2019-08-11 14:26 | P.CRDCN ---
<Chica Rausch - Last Filed: 08/11/19 14:09> History of Present Illness History of present illness: This is Chica Rausch PA-C dictating a consult on this patient The patient was interviewed and examined by me as well as by Dr. Wallace Case discussed with Dr. Wallace and he agrees with the plan of care IMPRESSION / ASSESSMENT: borderline abnormal troponins, patient is asymptomatic, no chest pain or shortness of breath, EKG showed no acute ST or T-wave abnormalities Hyponatremia, chlorthalidone has been discontinued PLAN: Obtain 2-D echo and Doppler studies to assess cardiac structure and function Repeat EKG If echo and EKG are normal, can follow up outpatient for further cardiac workup including a stress test If her hyponatremia does not resolve after discontinuing the chlorthalidone, can consider discontinuing lisinopril and starting amlodipine Monitor BMP, management of hyponatremia per primary discontinuing HPI Patient is an 84-year-old female with past medical history significant for hypertension who presented with complaints of dizziness and weakness. She states she was in [place] visiting her daughter when she felt very dizzy and was evaluated at the emergency department there and diagnosed with dehydration. She was just treated with fluids and discharged home. When she followed up with her primary care doctor she was diagnosed with a UTI. She was started on antibiotics and developed nausea and vomiting. States she has been sick to her stomach. Has been dizzy and feeling very weak. No chest pain or shortness of breath. No palpitations. She has not passed out. Upon presentation to the emergency department her pulse was 58 and blood pressure was 154/60. Labs were significant for WBC 12.2, sodium 120, osmolality 250, troponins elevated at 0.06. EKG showed sinus mechanism, no acute ST or T-wave abnormalities. Her chlorthalidone was stopped. Patient seen and examined resting comfortably in bed. States she still does feel a little dizzy and sick to her stomach. Denies any chest pain, chest pressure, jaw pain, back pain, shortness of breath, palpitations. Patient has no history of coronary artery disease, diabetes, or dyslipidemia, no family history of coronary artery disease, is a lifelong nonsmoker ROS: No fevers, chills or rigors, no cough, phlegm or expectoration, Positive nausea, vomiting, no diarrhea, no hematuria, dysuria, no musculoskeletal complaints, no strokes or seizures, no skin lesions. EXAMINATION: Temperature 98.1F, pulse 56, respirations 16, blood pressure 132/76, oxygen saturation 96% on room air Patient seen and examined resting comfortably in bed, in no acute distress Lungs are clear to auscultation bilaterally, no rhonchi wheezing or crackles Heart is regular, normal S1-S2, no murmurs noted, no elevated JVD or lower extremity edema REVIEW OF LABS, ECG & MEDICAL DATA WBC 12.2, sodium 120, osmolality 250, troponins elevated at 0.068, 0.061 Past Medical History Past Medical History: Hypertension, Osteoarthritis (OA) History of Any Multi-Drug Resistant Organisms: None Reported Past Surgical History: Appendectomy, Cholecystectomy Additional Past Surgical History / Comment(s): cataract removed bilat. Past Anesthesia/Blood Transfusion Reactions: No Reported Reaction Past Psychological History: No Psychological Hx Reported Smoking Status: Never smoker Past Alcohol Use History: None Reported Past Drug Use History: None Reported - Past Family History Mother Family Medical History: Dementia, Diabetes Mellitus Father Family Medical History: CVA/TIA Medications and Allergies Home Medications Medication Instructions Recorded Confirmed Type Atenolol/Chlorthalidone 1 tab PO DAILY 07/15/14 08/10/19 History [Atenolol-Chlorthal 50-25 Tb] Levothyroxine Sodium [Synthroid] 75 mcg PO DAILY 07/15/14 08/10/19 History Lisinopril [Zestril] 5 mg PO DAILY 07/15/14 08/10/19 History Calcium Carbonate [Calcium] 600 mg PO DAILY 06/02/17 08/10/19 History Vit C/E/Zn/Coppr/Lutein/Zeaxan 1 cap PO BID 06/02/17 08/10/19 History [Preservision Areds 2 Softgel] Allergies Allergy/AdvReac Type Severity Reaction Status Date / Time No Known Allergies Allergy Verified 08/10/19 22:02 Physical Exam Vitals: Vital Signs Temp Pulse Pulse Resp BP BP Pulse Ox 08/11/19 12:00 98.0 F 51 L 18 118/72 99 08/11/19 09:56 97.7 F 60 18 118/64 98 08/11/19 04:40 98.1 F 60 14 136/64 96 08/11/19 03:36 98.1 F 56 L 16 132/76 96 08/11/19 02:06 98.1 F 69 18 125/60 98 08/11/19 01:49 55 L 18 140/66 98 08/10/19 23:42 56 L 18 134/65 97 08/10/19 20:59 98.0 F 58 L 20 145/60 98 Intake and Output 08/10/19 08/11/19 08/11/19 22:59 06:59 14:59 Intake Total 1160 Balance 1160 Intake: Intake, IV Titration 800 Amount Sodium Chloride 0.9% 1, 800 000 ml @ 100 mls/hr IV . Q10H [facility] Rx#:[id number] Oral 360 Other: Voiding Method Toilet # Voids 1 3 Weight 78.245 kg 78.245 kg Results 08/10/19 22:54 08/10/19 22:54 Cardiac Enzymes 08/10/19 08/10/19 08/11/19 Range/Units 22:54 22:54 01:49 AST 21 (14-36) U/L Troponin I 0.068 H* 0.061 H* (0.000-0.034) ng/mL CBC 08/10/19 Range/Units 22:54 WBC 12.2 H (3.8-10.6) k/uL RBC 3.91 (3.80-5.40) m/uL Hgb 12.2 (11.4-16.0) gm/dL Hct 35.6 (34.0-46.0) % Plt Count 288 (150-450) k/uL Comprehensive Metabolic Panel 08/10/19 Range/Units 22:54 Sodium 120 L (137-145) mmol/L Potassium 4.0 (3.5-5.1) mmol/L Chloride 86 L (98-107) mmol/L Carbon Dioxide 24 (22-30) mmol/L BUN 16 (7-17) mg/dL Creatinine 0.93 (0.52-1.04) mg/dL Glucose 125 H (74-99) mg/dL Calcium 9.7 (8.4-10.2) mg/dL AST 21 (14-36) U/L ALT 20 (9-52) U/L Alkaline Phosphatase 74 (38-126) U/L Total Protein 7.0 (6.3-8.2) g/dL Albumin 4.0 (3.5-5.0) g/dL Current Medications Generic Name Dose Route Start Last Admin Trade Name Freq PRN Reason Stop Dose Admin Acetaminophen 650 mg 08/11/19 00:52 Tylenol Tab PO Q6HR PRN Mild Pain or Fever > 100.5 Atenolol 50 mg 08/11/19 09:00 Tenormin PO DAILY DENNIS Calcium Carbonate/Glycine 500 mg 08/11/19 09:00 08/11/19 10:20 Tums PO 500 mg DAILY [facility] Administration Docusate Sodium 100 mg 08/11/19 00:52 Colace PO BID PRN Constipation Famotidine 20 mg 08/11/19 09:00 08/11/19 10:20 Pepcid PO 20 mg BID [facility]NIS Administration Sodium Chloride 1,000 mls @ 100 mls/hr 08/11/19 01:00 08/11/19 12:46 Saline 0.9% IV 100 mls/hr .Q10H [facility] Administration Levothyroxine Sodium 75 mcg 08/11/19 06:30 08/11/19 06:44 Synthroid PO 75 mcg DAILY@0630 [facility]NIS Administration Lisinopril 5 mg 08/11/19 09:00 08/11/19 10:20 Zestril PO 5 mg DAILY DENNIS Administration Naloxone HCl 0.2 mg 08/11/19 00:52 Narcan IV Q2M PRN Opioid Reversal Ondansetron HCl 4 mg 08/11/19 00:52 Zofran IVP Q8HR PRN Nausea And Vomiting Intake and Output 08/10/19 08/11/19 08/11/19 22:59 06:59 14:59 Intake Total 1160 Balance 1160 Intake: Intake, IV Titration 800 Amount Sodium Chloride 0.9% 1, 800 000 ml @ 100 mls/hr IV . Q10H [facility] Rx#:[id number] Oral 360 Other: Voiding Method Toilet # Voids 1 3 Weight 78.245 kg 78.245 kg Patient Weight 08/12/19 06:59 Weight 78.245 kg 08/10/19 22:54 08/10/19 22:54 <Raphael Wallace - Last Filed: 08/11/19 21:42> History of Present Illness History of present illness: Patient interviewed and examined She does not have any exertional symptoms of angina or angina equivalent She has upper GI symptoms but they're clearly related to food intake, not to exertion Physical Exam Vitals: Vital Signs Temp Pulse Pulse Resp BP BP Pulse Ox 08/11/19 16:00 97.8 F 69 18 130/51 95 08/11/19 12:00 98.0 F 51 L 18 118/72 99 08/11/19 09:56 97.7 F 60 18 118/64 98 08/11/19 04:40 98.1 F 60 14 136/64 96 08/11/19 03:36 98.1 F 56 L 16 132/76 96 08/11/19 02:06 98.1 F 69 18 125/60 98 08/11/19 01:49 55 L 18 140/66 98 08/10/19 23:42 56 L 18 134/65 97 Intake and Output 08/11/19 08/11/19 08/11/19 06:59 14:59 22:59 Intake Total 1160 Balance 1160 Intake: Intake, IV Titration 800 Amount Sodium Chloride 0.9% 1, 800 000 ml @ 100 mls/hr IV . Q10H [facility] Rx#:[id number] Oral 360 Other: Voiding Method Toilet Toilet # Voids 1 3 1 Weight 78.245 kg Results 08/10/19 22:54 08/11/19 15:06 Cardiac Enzymes 08/10/19 08/10/19 08/11/19 Range/Units 22:54 22:54 01:49 AST 21 (14-36) U/L Troponin I 0.068 H* 0.061 H* (0.000-0.034) ng/mL 08/11/19 Range/Units 15:06 AST 19 (14-36) U/L Troponin I (0.000-0.034) ng/mL CBC 08/10/19 Range/Units 22:54 WBC 12.2 H (3.8-10.6) k/uL RBC 3.91 (3.80-5.40) m/uL Hgb 12.2 (11.4-16.0) gm/dL Hct 35.6 (34.0-46.0) % Plt Count 288 (150-450) k/uL Comprehensive Metabolic Panel 08/10/19 08/11/19 Range/Units 22:54 15:06 Sodium 120 L 126 L (137-145) mmol/L Potassium 4.0 3.6 (3.5-5.1) mmol/L Chloride 86 L 93 L (98-107) mmol/L Carbon Dioxide 24 25 (22-30) mmol/L BUN 16 13 (7-17) mg/dL Creatinine 0.93 0.87 (0.52-1.04) mg/dL Glucose 125 H 153 H (74-99) mg/dL Calcium 9.7 9.2 (8.4-10.2) mg/dL AST 21 19 (14-36) U/L ALT 20 10 (9-52) U/L Alkaline Phosphatase 74 57 (38-126) U/L Total Protein 7.0 6.5 (6.3-8.2) g/dL Albumin 4.0 3.6 (3.5-5.0) g/dL Current Medications Generic Name Dose Route Start Last Admin Trade Name Freq PRN Reason Stop Dose Admin Acetaminophen 650 mg 08/11/19 00:52 Tylenol Tab PO Q6HR PRN Mild Pain or Fever > 100.5 Atenolol 50 mg 08/11/19 09:00 08/11/19 16:33 Tenormin PO 50 mg DAILY [facility]NIS Administration Calcium Carbonate/Glycine 500 mg 08/11/19 09:00 08/11/19 10:20 Tums PO 500 mg DAILY [facility]NIS Administration Docusate Sodium 100 mg 08/11/19 00:52 Colace PO BID PRN Constipation Enoxaparin Sodium 40 mg 08/12/19 09:00 Lovenox SQ DAILY DENNIS Famotidine 20 mg 08/11/19 09:00 08/11/19 21:30 Pepcid PO 20 mg BID DENNIS Administration Sodium Chloride 1,000 mls @ 100 mls/hr 08/11/19 01:00 08/11/19 21:30 Saline 0.9% IV 100 mls/hr .Q10H [facility] Administration Levothyroxine Sodium 75 mcg 08/11/19 06:30 08/11/19 06:44 Synthroid PO 75 mcg DAILY@0630 DENNIS Administration Lisinopril 5 mg 08/11/19 09:00 08/11/19 10:20 Zestril PO 5 mg DAILY [facility] Administration Naloxone HCl 0.2 mg 08/11/19 00:52 Narcan IV Q2M PRN Opioid Reversal Ondansetron HCl 4 mg 08/11/19 00:52 Zofran IVP Q8HR PRN Nausea And Vomiting Intake and Output 08/11/19 08/11/19 08/11/19 06:59 14:59 22:59 Intake Total 1160 Balance 1160 Intake: Intake, IV Titration 800 Amount Sodium Chloride 0.9% 1, 800 000 ml @ 100 mls/hr IV . Q10H [facility] Rx#:[id number] Oral 360 Other: Voiding Method Toilet Toilet # Voids 1 3 1 Weight 78.245 kg Patient Weight 08/12/19 06:59 Weight 78.245 kg 08/10/19 22:54 08/11/19 15:06
--- NOTE | 2019-08-11 14:47 | P.HPIM ---
History of Present Illness H&P Date: 08/11/19 Marisela Pierce is an 84-year-old female who presented to [facility] emergency room with vague symptoms of nausea, dizziness and not feeling well. She was evaluated in the emergency room and had evidence of severe hyponatremia her sodium was low at 120. She was started on IV normal saline and was admitted to telemetry floor, patient also had slight elevation in her troponin level, and mild elevation in white blood count of 12.2. Patient stated that she was visiting in [place] a week ago when she did not feel well she went to an emergency room over there and had severely elevated blood pressure of 200/100 she was admitted and treated there and was discharged home she states that her blood pressure medications were not changed during that admission. She also stated that 4 days ago she was not feeling well she saw her primary care physician, she was diagnosed with urinary tract infection and was given a course of Bactrim. Past Medical History Past Medical History: Hypertension, Osteoarthritis (OA) History of Any Multi-Drug Resistant Organisms: None Reported Past Surgical History: Appendectomy, Cholecystectomy Additional Past Surgical History / Comment(s): cataract removed bilat. Past Anesthesia/Blood Transfusion Reactions: No Reported Reaction Past Psychological History: No Psychological Hx Reported Smoking Status: Never smoker Past Alcohol Use History: None Reported Past Drug Use History: None Reported - Past Family History Mother Family Medical History: Dementia, Diabetes Mellitus Father Family Medical History: CVA/TIA Medications and Allergies Home Medications Medication Instructions Recorded Confirmed Type Atenolol/Chlorthalidone 1 tab PO DAILY 07/15/14 08/10/19 History [Atenolol-Chlorthal 50-25 Tb] Levothyroxine Sodium [Synthroid] 75 mcg PO DAILY 07/15/14 08/10/19 History Lisinopril [Zestril] 5 mg PO DAILY 07/15/14 08/10/19 History Calcium Carbonate [Calcium] 600 mg PO DAILY 06/02/17 08/10/19 History Vit C/E/Zn/Coppr/Lutein/Zeaxan 1 cap PO BID 06/02/17 08/10/19 History [Preservision Areds 2 Softgel] Allergies Allergy/AdvReac Type Severity Reaction Status Date / Time No Known Allergies Allergy Verified 08/10/19 22:02 Physical Exam Vitals: Vital Signs Temp Pulse Pulse Resp BP BP Pulse Ox 08/11/19 12:00 98.0 F 51 L 18 118/72 99 08/11/19 09:56 97.7 F 60 18 118/64 98 08/11/19 04:40 98.1 F 60 14 136/64 96 08/11/19 03:36 98.1 F 56 L 16 132/76 96 08/11/19 02:06 98.1 F 69 18 125/60 98 08/11/19 01:49 55 L 18 140/66 98 08/10/19 23:42 56 L 18 134/65 97 08/10/19 20:59 98.0 F 58 L 20 145/60 98 Intake and Output 08/10/19 08/11/19 08/11/19 22:59 06:59 14:59 Intake Total 1160 Balance 1160 Intake: Intake, IV Titration 800 Amount Sodium Chloride 0.9% 1, 800 000 ml @ 100 mls/hr IV . Q10H DENNIS Rx#:[id number] Oral 360 Other: Voiding Method Toilet # Voids 1 3 Weight 78.245 kg 78.245 kg In general patient is alert and oriented 3 in no apparent distress HEENT head normocephalic and atraumatic Neck is supple no JVD no goiter no lymphadenopathy Chest exam reveals a few scattered crackles no wheezing Cardiac exam reveals regular heart sounds no gallops no murmurs Abdomen is soft nontender no organomegaly with normal bowel sounds Extremity exam reveals no edema no cyanosis or clubbing Neurological examination reveals no gross focal deficit Results CBC & Chem 7: 08/10/19 22:54 08/10/19 22:54 Labs: Abnormal Lab Results - Last 24 Hours (Table) 08/10/19 08/10/19 08/10/19 Range/Units 22:54 22:54 22:54 WBC 12.2 H (3.8-10.6) k/uL Neutrophils # 10.3 H (1.3-7.7) k/uL Sodium 120 L (137-145) mmol/L Chloride 86 L (98-107) mmol/L Glucose 125 H (74-99) mg/dL Osmolality (280-301) mosm/kg Troponin I 0.068 H* (0.000-0.034) ng/mL Urine Protein (Negative) Urine Ketones (Negative) Urine Blood (Negative) Urine Bacteria (None) /hpf Urine Mucus (None) /hpf 08/10/19 08/10/19 08/11/19 Range/Units 22:54 23:10 01:49 WBC (3.8-10.6) k/uL Neutrophils # (1.3-7.7) k/uL Sodium (137-145) mmol/L Chloride (98-107) mmol/L Glucose (74-99) mg/dL Osmolality 250 L (280-301) mosm/kg Troponin I 0.061 H* (0.000-0.034) ng/mL Urine Protein Trace H (Negative) Urine Ketones 1+ H (Negative) Urine Blood Trace H (Negative) Urine Bacteria Few H (None) /hpf Urine Mucus Rare H (None) /hpf Thrombosis Risk Factor Assmnt - Choose All That Apply Each Risk Factor Represents 3 Points: Age 75 years or older Thrombosis Risk Factor Assessment Total Risk Factor Score: 3 Thrombosis Risk Factor Assessment Level: Moderate Risk Assessment and Plan Plan: #1 severe hyponatremia with sodium at 120 at this time chlorthalidone was discontinued and patient was started on IV normal saline, patient states that recently she started drinking more water than usual, she was told to return to her normal amount of water intake. #2 slight elevation in troponin level and will monitor cardiology consultation was requested #3 recent urinary tract infection treated with oral Bactrim as outpatient will check urine analysis and urine culture #4 underlying history of hypertension At this time will continue with current management will recheck labs. For GI prophylaxis patient is on Pepcid For DVT prophylaxis we will give Lovenox 40 mg subcu once daily
[2019-08-11 15:40] LABS: Albumin 3.6 g/dL (3.5-5.0); Calcium 9.2 mg/dL (8.4-10.2); Potassium 3.6 mmol/L (3.5-5.1); Total Bilirubin 0.5 mg/dL (0.2-1.3); Total Protein 6.5 g/dL (6.3-8.2)
[2019-08-11] MEDS: ATENOLOL 50 MG TAB PO SCH (16:33)
[2019-08-12] MEDS: SODIUM CHLORIDE 0.9% 1,000 ML IV SCH ×2 (06:18→17:30)
[2019-08-12] MEDS: LEVOTHYROXINE 75 MCG TAB PO SCH (06:18)
[2019-08-12 07:56] LABS: Basophils % (A) 0 %; Eosinophils # (A) 0.2 k/uL (0-0.7); Eosinophils % (A) 2 %; HCT 35.5 % (34.0-46.0); HGB 11.7 gm/dL (11.4-16.0); Lymphocytes # (A) 1.6 k/uL (1.0-4.8); Lymphocytes % (A) 20 %; MCH 31.5 pg (25.0-35.0); MCHC 32.9 g/dL (31.0-37.0); MCV 95.8 fL (80.0-100.0); Mean Platelet Volume 6.2; Monocytes # (A) 0.4 k/uL (0-1.0); Monocytes % (A) 5 %; Neutrophils # (A) 5.5 k/uL (1.3-7.7); Neutrophils % (A) 70 %; Platelet Count 258 k/uL (150-450); RBC 3.71 m/uL (3.80-5.40); RDW 12.4 % (11.5-15.5); WBC 7.8 k/uL (3.8-10.6)
[2019-08-12 08:15] LABS: Albumin 3.4 g/dL (3.5-5.0); Calcium 9.1 mg/dL (8.4-10.2); Potassium 4.5 mmol/L (3.5-5.1); Total Bilirubin 0.5 mg/dL (0.2-1.3); Total Protein 6.1 g/dL (6.3-8.2)
--- NOTE | 2019-08-12 08:44 | ECHOF ---
Referral Reason:[facility] MEASUREMENTS -------- HEIGHT: 162.6 cm WEIGHT: 78.0 kg BP: 118/64 IVSd: 1.1 cm (0.6 - 1.1) LVIDd: 2.9 cm (3.9 - 5.3) LVPWd: 1.2 cm (0.6 - 1.1) IVSs: 1.6 cm LVIDs: 2.6 cm LVPWs: 1.8 cm RVIDd: 2.8 cm (< 3.3) LAESV Index (A-L): 25.00 ml/m Ao Diam: 2.8 cm (2.0 - 3.7) AV Cusp: 1.8 cm (1.5 - 2.6) EPSS: 0.8 cm MV E Edwardo: 0.97 m/s MV DecT: 199 ms MV A Edwardo: 0.86 m/s MV E/A Ratio: 1.12 RAP: 5.00 mmHg RVSP: 30.55 mmHg MV EF SLOPE: 84.78 mm/s (70 - 150) MV EXCURSION: 14.95 mm (> 18.000) TAPSE: 28.55 mm FINDINGS -------- Sinus rhythm. This was a technically good study. The left ventricular size is normal. There is borderline concentric left ventricular hypertrophy. Overall left ventricular systolic function is normal with, an EF between 60 - 65 %. The diastolic filling pattern indicates impaired relaxation 16.55. The right ventricle is normal in size. Normal LA size by volume 22+/-6 ml/m2. The right atrium is normal in size. Interatrial and interventricular septum intact. The aortic valve is trileaflet and appears structurally normal. Trace amount of aortic regurgitatio n. The mitral valve leaflets are mildly thickened. Mild mitral regurgitation is present. Mild tricuspid regurgitation present. Right ventricular systolic pressure is normal at < 35 mmHg. Trace/mild (physiologic) pulmonic regurgitation. The aortic root size is normal. Normal inferior vena cava with normal inspiratory collapse consistent with estimated right atrial pre ssure of 5 mmHg. There is no pericardial effusion. CONCLUSIONS -------- 1. Sinus rhythm. 2. This was a technically good study. 3. The left ventricular size is normal. 4. There is borderline concentric left ventricular hypertrophy. 5. Overall left ventricular systolic function is normal with, an EF between 60 - 65 %. 6. The diastolic filling pattern indicates impaired relaxation 16.55.. 7. The right ventricle is normal in size. 8. Normal LA size by volume 22+/-6 ml/m2. 9. The right atrium is normal in size. 10. Interatrial and interventricular septum intact. 11. The aortic valve is trileaflet and appears structurally normal. 12. Trace amount of aortic regurgitation. 13. The mitral valve leaflets are mildly thickened. 14. Mild mitral regurgitation is present. 15. Mild tricuspid regurgitation present. 16. Right ventricular systolic pressure is normal at < 35 mmHg. 17. Trace/mild (physiologic) pulmonic regurgitation. 18. The aortic root size is normal. 19. Normal inferior vena cava with normal inspiratory collapse consistent with estimated right atrial pressure of 5 mmHg. 20. There is no pericardial effusion. BILLING ASSISTANT: Macarena Monahan RDCS
[2019-08-12] MEDS: CALCIUM CARBONATE 500 MG CHEWABLE PO SCH (09:04)
[2019-08-12] MEDS: ATENOLOL 50 MG TAB PO SCH (09:04)
[2019-08-12] MEDS: ENOXAPARIN 40 MG/0.4 ML SYRINGE SQ SCH (09:04)
[2019-08-12] MEDS: LISINOPRIL 5 MG TAB PO SCH (09:05)
[2019-08-12] MEDS: FAMOTIDINE 20 MG TAB PO SCH ×2 (09:05→20:36)
--- NOTE | 2019-08-12 12:57 | P.PN ---
Subjective Progress Note Date: 08/12/19 Marisela Pierce is an 84-year-old female who presented to [facility] emergency room with vague symptoms of nausea, dizziness and not feeling well. She was evaluated in the emergency room and had evidence of severe hyponatremia her sodium was low at 120. She was started on IV normal saline and was admitted to telemetry floor, patient also had slight elevation in her troponin level, and mild elevation in white blood count of 12.2. Patient stated that she was visiting in [place] a week ago when she did not feel well she went to an emergency room over there and had severely elevated blood pressure of 200/100 she was admitted and treated there and was discharged home she states that her blood pressure medications were not changed during that admission. She also stated that 4 days ago she was not feeling well she saw her primary care physician, she was diagnosed with urinary tract infection and was given a course of Bactrim. On 08/12/2018 patient is alert and oriented 3. Patient feels much improved compared to yesterday. Sodium improving to 131. Patient reports increased in appetite. The pressure also improved. At this time patient denies chest pain or shortness of breath. Patient denies nausea vomiting or diarrhea. Patient denies any urinary burning or frequency Objective - Vital Signs Vital signs: Vital Signs Temp 97.4 F L 08/12/19 11:39 Pulse 47 L 08/12/19 11:39 Resp 18 08/12/19 11:39 BP 116/68 08/12/19 11:39 Pulse Ox 98 08/12/19 11:39 Intake & Output 08/11/19 08/12/19 08/12/19 18:59 06:59 18:59 Intake Total 1160 1160 Output Total 1900 Balance 1160 -1900 1160 Weight 78.245 kg Intake: IV 800 Sodium Chloride 0.9% 1, 800 000 ml @ 100 mls/hr IV . Q10H DENNIS Rx#:[id number] Intake, IV Titration 800 Amount Sodium Chloride 0.9% 1, 800 000 ml @ 100 mls/hr IV . Q10H DENNIS Rx#:[id number] Oral 360 360 Output: Urine 1900 Other: Voiding Method Toilet Toilet # Voids 1 # Bowel Movements 1 - Exam In general patient is alert and oriented 3 in no apparent distress HEENT head normocephalic and atraumatic Neck is supple no JVD no goiter no lymphadenopathy Chest exam reveals a few scattered crackles no wheezing Cardiac exam reveals regular heart sounds no gallops no murmurs Abdomen is soft nontender no organomegaly with normal bowel sounds Extremity exam reveals no edema no cyanosis or clubbing Neurological examination reveals no gross focal deficit - Labs CBC & Chem 7: 08/12/19 07:17 08/12/19 07:17 Labs: Abnormal Lab Results - Last 24 Hours (Table) 08/11/19 08/12/19 08/12/19 Range/Units 15:06 07:17 07:17 RBC 3.71 L (3.80-5.40) m/uL Sodium 126 L 131 L (137-145) mmol/L Chloride 93 L (98-107) mmol/L Glucose 153 H (74-99) mg/dL Total Protein 6.1 L (6.3-8.2) g/dL Albumin 3.4 L (3.5-5.0) g/dL Microbiology - Last 24 Hours (Table) 08/11/19 16:00 Urine Culture - Preliminary Urine,Voided Assessment and Plan Assessment: #1 severe hyponatremia with sodium at 120 at this time chlorthalidone was discon tinued and patient was started on IV normal saline, patient states that recently she started drinking more water than usual, she was told to return to her normal amount of water intake. Sodium improving to 131. Patient remains on normal saline at 100 #2 slight elevation in troponin level and will monitor cardiology consultation was requested. 2-D echo completed showing an EF of 60-65%. #3 recent urinary tract infection treated with oral Bactrim as outpatient will check urine analysis and urine culture #4 underlying history of hypertension At this time will continue with current management will recheck labs. For GI prophylaxis patient is on Pepcid For DVT prophylaxis we will give Lovenox 40 mg subcu once daily Anticipate discharge in the next 24-48 hours I performed an examination of the patient and discussed their management with the Nurse Practitioner. I have reviewed the Nurse Practitioner's notes and agree with the documented findings and plan of care
--- NOTE | 2019-08-12 15:38 | P.PN ---
Subjective This is Chica Rausch PA-C dictating a progress note on this patient The patient was interviewed and examined by me as well as by Dr. Wallace Case discussed with Dr. Wallace and he agrees with the plan of care IMPRESSION / ASSESSMENT: borderline abnormal troponins, patient remains asymptomatic, no chest pain or shortness of breath, repeat EKG showed no acute ST or T-wave abnormalities Hyponatremia, improved since chlorthalidone has been discontinued Hypertension, blood pressure is been stable PLAN: Continue current BP medication regimen follow up outpatient for further cardiac workup including a stress test Monitor BMP, management of hyponatremia per primary team HPI/interval history Patient is an 84-year-old female with past medical history significant for hypertension who presented with complaints of dizziness and weakness. Upon presentation, she was found to be hyponatremic, sodium 120, osmolality 250, troponins elevated at 0.06. EKG showed sinus mechanism, no acute ST or T-wave abnormalities. Her chlorthalidone was stopped. Her sodium has improved. Repeat EKG today showed no acute ST or T-wave abnormalities. Echocardiogram showed normal LV size and function. Patient seen and examined sitting up at the side of the bed. States her symptoms are improving. She still does feel weak but she has been able to eat. No more nausea and vomiting. No chest pain or shortness of breath. EXAMINATION Temperature 97.4F, pulse 60, respirations 18, blood pressure 118/63, oxygen saturation 98% on room air Patient seen and examined sitting up at the side of the bed, in no acute distress Lungs clear to auscultation bilaterally Heart is regular, normal S1 and S2, no murmurs noted No lower extremity edema or elevated JVD REVIEW OF LABS, ECG WBC 7.8, hemoglobin 11.7, platelets 258, potassium 4.5, sodium 131, BUN 14, creatinine 0.76 Echo shows EF 60-65%, no significant valvular abnormalities Objective - Vital Signs Vital signs: Vital Signs Temp 97.4 F L 08/12/19 11:39 Pulse 47 L 08/12/19 11:39 Resp 18 08/12/19 11:39 BP 116/68 08/12/19 11:39 Pulse Ox 98 08/12/19 11:39 Intake & Output 08/11/19 08/12/19 08/12/19 18:59 06:59 18:59 Intake Total 1160 1520 Output Total 1900 Balance 1160 -1900 1520 Weight 78.245 kg Intake: IV 800 Sodium Chloride 0.9% 1, 800 000 ml @ 100 mls/hr IV . Q10H DENNIS Rx#:[id number] Intake, IV Titration 800 Amount Sodium Chloride 0.9% 1, 800 000 ml @ 100 mls/hr IV . Q10H DENNIS Rx#:[id number] Oral 360 720 Output: Urine 1900 Other: Voiding Method Toilet Toilet # Voids 1 # Bowel Movements 1 - Labs CBC & Chem 7: 08/12/19 07:17 08/12/19 07:17 Labs: Abnormal Lab Results - Last 24 Hours (Table) 08/11/19 08/12/19 08/12/19 Range/Units 15:06 07:17 07:17 RBC 3.71 L (3.80-5.40) m/uL Sodium 126 L 131 L (137-145) mmol/L Chloride 93 L (98-107) mmol/L Glucose 153 H (74-99) mg/dL Total Protein 6.1 L (6.3-8.2) g/dL Albumin 3.4 L (3.5-5.0) g/dL Microbiology - Last 24 Hours (Table) 08/11/19 16:00 Urine Culture - Preliminary Urine,Voided
[2019-08-12 20:39] VITALS: RESP 16
[2019-08-13] MEDS: LEVOTHYROXINE 75 MCG TAB PO SCH (06:24)
[2019-08-13] MEDS: SODIUM CHLORIDE 0.9% 1,000 ML IV SCH (06:24)
[2019-08-13 07:06] LABS: Basophils % (A) 0 %; Eosinophils # (A) 0.2 k/uL (0-0.7); Eosinophils % (A) 2 %; HCT 33.8 % (34.0-46.0); HGB 11.4 gm/dL (11.4-16.0); Lymphocytes # (A) 1.9 k/uL (1.0-4.8); Lymphocytes % (A) 24 %; MCH 32.1 pg (25.0-35.0); MCHC 33.7 g/dL (31.0-37.0); MCV 95.3 fL (80.0-100.0); Mean Platelet Volume 6.2; Monocytes # (A) 0.4 k/uL (0-1.0); Monocytes % (A) 5 %; Neutrophils # (A) 5.1 k/uL (1.3-7.7); Neutrophils % (A) 66 %; Platelet Count 247 k/uL (150-450); RBC 3.54 m/uL (3.80-5.40); RDW 12.3 % (11.5-15.5); WBC 7.7 k/uL (3.8-10.6)
[2019-08-13 07:45] LABS: Albumin 3.2 g/dL (3.5-5.0); Potassium 4.3 mmol/L (3.5-5.1); Total Bilirubin 0.3 mg/dL (0.2-1.3); Total Protein 5.9 g/dL (6.3-8.2)
[2019-08-13] MEDS: ATENOLOL 50 MG TAB PO SCH (08:43)
[2019-08-13] MEDS: ENOXAPARIN 40 MG/0.4 ML SYRINGE SQ SCH (08:43)
[2019-08-13] MEDS: LISINOPRIL 5 MG TAB PO SCH (08:43)
[2019-08-13] MEDS: CALCIUM CARBONATE 500 MG CHEWABLE PO SCH (08:43)
[2019-08-13] MEDS: FAMOTIDINE 20 MG TAB PO SCH (08:43)
--- NOTE | 2019-08-13 10:54 | P.DS ---
Providers Date of admission: 08/11/19 00:54 Expected date of discharge: 08/13/19 Attending physician: Roseline Klein Consults: 08/11/19 01:39 Consult Physician Routine Consulting Provider: Tomasz Valentine Consult Reason/Comments: borderline troponin Do you want consulting provider notified?: Yes [facility] Course: Discharge diagnosis #1 severe hyponatremia with sodium at 120 at this time chlorthalidone was discontinued and patient was started on IV normal saline, patient states that recently she started drinking more water than usual, she was told to return to her normal amount of water intake. Sodium improving to 131. Patient remains on normal saline at 100. Sodium improving to 134. Patient's atenolol-chlorot halidone. DC'd and patient will be discharged home on just atenolol. Repeat CMP has been ordered for 2 days #2 slight elevation in troponin level and will monitor cardiology consultation was requested. 2-D echo completed showing an EF of 60-65%. Patient has been cleared for discharge from cardiology standpoint. Patient to follow-up outpatient for further cardiac workup including stress test #3 recent urinary tract infection treated with oral Bactrim as outpatient will check urine analysis. Urine culture showing no growth after 18 hours. Patient is asymptomatic #4 underlying history of hypertension Hospital course Marisela Pierce is an 84-year-old female who presented to [facility] emergency room with vague symptoms of nausea, dizziness and not feeling well. She was evaluated in the emergency room and had evidence of severe hyponatremia her sodium was low at 120. She was started on IV normal saline and was admitted to telemetry floor, patient also had slight elevation in her troponin level, and mild elevation in white blood count of 12.2. Patient stated that she was visiting in [place] a week ago when she did not feel well she went to an emergency room over there and had severely elevated blood pressure of 200/100 she was admitted and treated there and was discharged home she states that her blood pressure medications were not changed during that admission. She also stated that 4 days ago she was not feeling well she saw her primary care physician, she was diagnosed with urinary tract infection and was given a course of Bactrim. On 08/12/2018 patient is alert and oriented 3. Patient feels much improved compared to yesterday. Sodium improving to 131. Patient reports increased in appetite. The pressure also improved. At this time patient denies chest pain or shortness of breath. Patient denies nausea vomiting or diarrhea. Patient denies any urinary burning or frequency On 08/12/2019 patient's alert and oriented 3. Patient is feeling significantly improved and eager to go home. Sodium improving 134. Patient states appetite has returned to normal. Patient denies chest pain or shortness of breath. Patient denies nausea vomiting or diarrhea. Denies any urinary burning or frequency. I performed an examination of the patient and discussed their management with the Nurse Practitioner. I have reviewed the Nurse Practitioner's notes and agree with the documented findings and plan of care Patient Condition at Discharge: Stable Plan - Discharge Summary New Discharge Prescriptions: New Atenolol [Tenormin] 50 mg PO DAILY 30 Days #30 tab Continue Lisinopril [Zestril] 5 mg PO DAILY Levothyroxine Sodium [Synthroid] 75 mcg PO DAILY Calcium Carbonate [Calcium] 600 mg PO DAILY Vit C/E/Zn/Coppr/Lutein/Zeaxan [Preservision Areds 2 Softgel] 1 cap PO BID Discontinued Atenolol/Chlorthalidone [Atenolol-Chlorthal 50-25 Tb] 1 tab PO DAILY Discharge Medication List Levothyroxine Sodium [Synthroid] 75 mcg PO DAILY 07/15/14 [History] Lisinopril [Zestril] 5 mg PO DAILY 07/15/14 [History] Calcium Carbonate [Calcium] 600 mg PO DAILY 06/02/17 [History] Vit C/E/Zn/Coppr/Lutein/Zeaxan [Preservision Areds 2 Softgel] 1 cap PO BID 06/02/17 [History] Atenolol [Tenormin] 50 mg PO DAILY 30 Days #30 tab 08/13/19 [Rx] Follow up Appointment(s)/Referral(s): Arnol Amezquita MD [STAFF PHYSICIAN] - 1 Week (Patient of Dr. Amezquita's per office, saw patient in 2017. Office will call with a follow up appointment. ) Bren Webster NPC [REFERRING] - 08/20/19 1:30 pm Ambulatory/Diagnostic Orders: Comprehensive Metabolic Panel [LAB.AMB] Time Frame: 2 Days, Location: None Selected Patient Instructions/Handouts: Hyponatremia (DC), Bradycardia (DC) Discharge Disposition: HOME SELF-CARE
--- NOTE | 2019-08-13 11:37 | P.PN ---
Subjective Progress Note Date: 08/13/19 Patient is an 84-year-old female with past medical history significant for hypertension who presented with complaints of dizziness and weakness. She states she was in [place] visiting her daughter when she felt very dizzy and was evaluated at the emergency department there and diagnosed with dehydra tion. She was just treated with fluids and discharged home. When she followed up with her primary care doctor she was diagnosed with a UTI. She was started on antibiotics and developed nausea and vomiting. States she has been sick to her stomach. Has been dizzy and feeling very weak. No chest pain or shortness of breath. No palpitations. She has not passed out. Upon presentation to the emergency department her pulse was 58 and blood pressure was 154/60. Labs were significant for WBC 12.2, sodium 120, osmolality 250, troponins elevated at 0.06. EKG showed sinus mechanism, no acute ST or T-wave abnormalities. Her chlorthalidone was stopped. Patient seen and examined resting comfortably in bed. States she still does feel a little dizzy and sick to her stomach. Denies any chest pain, chest pressure, jaw pain, back pain, shortness of breath, palpitations. Echocardiogram with Doppler study was performed which revealed a normal left ventricular systolic function. Sodium this morning 134. Blood pressure 160/70. Objective - Vital Signs Vital signs: Vital Signs Temp 97.9 F 08/13/19 04:15 Pulse 64 08/13/19 04:15 Resp 16 08/13/19 04:15 BP 161/70 08/13/19 04:15 Pulse Ox 96 08/13/19 04:15 Intake & Output 08/12/19 08/13/19 08/13/19 18:59 06:59 18:59 Intake Total 1880 200 360 Output Total 200 Balance 1680 200 360 Weight 79.7 kg Intake: IV 800 Sodium Chloride 0.9% 1, 800 000 ml @ 100 mls/hr IV . Q10H DENNIS Rx#:[id number] Intake, IV Titration 200 Amount Sodium Chloride 0.9% 1, 200 000 ml @ 100 mls/hr IV . Q10H DENNIS Rx#:[id number] Oral 1080 360 Output: Urine 200 Other: Voiding Method Toilet # Voids 1 1 # Bowel Movements 1 - Exam PHYSICAL EXAMINATION: GENERAL: 84-year-old female in no acute distress at the time of my examination HEENT: Head is atraumatic, normocephalic. Pupils equal, round. Sclera anicteric. Conjunctiva are clear. Mucous membranes of the mouth are moist. Neck is supple. There is no elevated jugular venous pressure. No carotid bruit is heard. HEART EXAMINATION: Heart S1 S2 1 systolic murmur is heard CHEST EXAMINATION: Lungs are clear to auscultation and precussion. No chest wall tenderness is noted on palpation or with deep breathing. ABDOMEN: Soft, nontender. Bowel sounds are heard. No organomegaly noted. EXTREMITIES: 2+ peripheral pulses with no evidence of peripheral edema and no calf tenderness noted. NEUROLOGIC patient is awake, alert and oriented 3 . . - Labs CBC & Chem 7: 08/13/19 06:50 08/13/19 06:50 Labs: Abnormal Lab Results - Last 24 Hours (Table) 08/13/19 08/13/19 Range/Units 06:50 06:50 RBC 3.54 L (3.80-5.40) m/uL Hct 33.8 L (34.0-46.0) % Sodium 134 L (137-145) mmol/L BUN 19 H (7-17) mg/dL Total Protein 5.9 L (6.3-8.2) g/dL Albumin 3.2 L (3.5-5.0) g/dL Microbiology - Last 24 Hours (Table) 08/11/19 16:00 Urine Culture - Final Urine,Voided Assessment and Plan Plan: Assessment and plan #1 severe hyponatremia with sodium at 120 at the time of admission, 134 this morning #2 abnormality in troponin with no significant rise and fall pattern, LV func tion normal, not suggestive of acute coronary syndrome. #3 recent urinary tract infection #4 underlying history of hypertension Plan From cardiology's perspective, patient may be able to be discharged home once cleared by primary. Follow-up appointment in the office post discharge. DNP note has been reviewed, I agree with a documented findings and plan of care. Patient was seen and examined.
[2019-08-13 12:28] VITALS: BP 146/66; PULSE 62; TEMP 97.4
== END 2019-08-13 12:10 | disposition home or self-care (01) | DRG 641 ==
LOC: EC 20:47 → 4SSUR 08-11 00:54 → 3SCARD 08-11 04:06
PROVIDERS: ADMIT Internal Medicine; ATTEND Internal Medicine
DX: E87.1 Hypo-osmolality and hyponatremia (principal); E86.0 Dehydration; I10 Essential (primary) hypertension; Z79.890 Hormone replacement therapy; Z79.899 Other long term (current) drug therapy; Z83.3 Family history of diabetes mellitus; Z90.49 Acquired absence of other specified parts of digestive tract; Z98.42 Cataract extraction status, left eye; Z98.41 Cataract extraction status, right eye; R79.89 Other specified abnormal findings of blood chemistry
CPT/HCPCS: 36415; 80053; 81001; 82150; 82570; 83605; 83690; 83930; 83935; 84133; 84300; 84443; 84484; 85025; 87086; 93005; 93306; 96361; 96374; 99284; 99285

== ENCOUNTER → 2019-08-15 | Outpatient (CLI) | payer MEDICARE ==
[2019-08-15 15:49] LABS: Albumin 4.2 g/dL (3.80-4.90); Albumin/Globulin Ratio 1.83 (1.60-3.17); Anion Gap 11.1 mmol/L (4.00-12.00); BUN/Creat Ratio 18.75 Ratio (12.00-20.00); Calcium 9.6 mg/dL (8.7-10.3); Carbon Dioxide 25.9 mmol/L (21.6-31.8); Globulin 2.3 g/dL (1.6-3.3); Potassium 4.3 mmol/L (3.5-5.5); Total Bilirubin 0.5 mg/dL (0.2-1.2); Total Protein 6.5 g/dL (6.2-8.2)
== END | disposition home or self-care (01) ==
LOC: LABWHC1 09:34
PROVIDERS: ATTEND Nurse Practitioner
DX: E87.1 Hypo-osmolality and hyponatremia (principal)
CPT/HCPCS: 36415; 80053

== ENCOUNTER 2022-09-21 08:05 | Inpatient (IN) | payer MEDICARE ==
[2022-09-21] MEDS ORDERED: ASPIRIN 81 MG PO STA (08:12)
[2022-09-21] MEDS ORDERED: NITROGLYCERIN OINT 1 INCH/GM PACKET TOPICAL STA (08:12)
[2022-09-21] MEDS ORDERED: SODIUM CHLORIDE 0.9% 500 ML 500 ML IV ONE (08:13)
[2022-09-21] MEDS ORDERED: LABETALOL 5 MG/ML VIAL MDV IVP STA (08:13)
[2022-09-21 08:32] LABS: Basophils % (A) 0 %; Eosinophils # (A) 0.1 k/uL (0-0.7); Eosinophils % (A) 1 %; HCT 40.9 % (34.0-46.0); HGB 13.5 gm/dL (11.4-16.0); Lymphocytes # (A) 0.4 k/uL (1.0-4.8); Lymphocytes % (A) 3 %; MCH 31.6 pg (25.0-35.0); MCHC 33.1 g/dL (31.0-37.0); MCV 95.6 fL (80.0-100.0); Mean Platelet Volume 7.8; Monocytes # (A) 0.4 k/uL (0-1.0); Monocytes % (A) 4 %; Neutrophils # (A) 10.6 k/uL (1.3-7.7); Neutrophils % (A) 92 %; Platelet Count 198 k/uL (150-450); RBC 4.27 m/uL (3.80-5.40); RDW 12.4 % (11.5-15.5); WBC 11.6 k/uL (3.8-10.6)
[2022-09-21 08:51] LABS: ALT 537 U/L (4-34); African American GFR (CKD) >90 (>60 ml/min/1.73 sqM); Albumin 4.2 g/dL (3.5-5.0); Alkaline Phosphatase 309 U/L (38-126); Amylase 35 U/L (30-110); Anion Gap 7 mmol/L; Blood Urea Nitrogen 17 mg/dL (7-17); Calcium 9.1 mg/dL (8.4-10.2); Carbon Dioxide 28 mmol/L (22-30); Chloride 100 mmol/L (98-107); Glucose 144 mg/dL (74-99); Lipase 69 U/L (23-300); Magnesium 1.4 mg/dL (1.6-2.3); Non-African American GFR(CKD) 81 (>60 ml/min/1.73 sqM); Potassium 3.7 mmol/L (3.5-5.1); Sodium 135 mmol/L (137-145); Total Bilirubin 2.8 mg/dL (0.2-1.3); Total Protein 7.1 g/dL (6.3-8.2)
--- NOTE | 2022-09-21 09:09 | XR ---
EXAMINATION TYPE: XR chest 2V DATE OF EXAM: 09/21/2022 COMPARISON: Chest x-ray December 25, 2014 HISTORY: Chest pain. TECHNIQUE: Frontal and lateral views of the chest are obtained. FINDINGS: There is no suspicious new focal air space opacity, pleural effusion, or pneumothorax seen . The cardiac silhouette size is stable and upper limits of normal. Overlying bra strap. The osseo us structures are somewhat demineralized. Underlying scoliosis redemonstrated. IMPRESSION: No acute cardiopulmonary process. No significant change from prior.
--- NOTE | 2022-09-21 09:12 | ED ---
General Adult HPI - General Chief complaint: Chest Pain Stated complaint: chest pain Time Seen by Provider: 09/21/22 08:05 Source: patient, EMS, RN notes reviewed, old records reviewed Mode of arrival: EMS Limitations: no limitations - History of Present Illness Initial comments: This is an 87-year-old female presents emergency Department complaining since last night she's had chest pain in the middle of her chest that radiated to her back. Patient states that Her up all night. Patient denies any difficulty breathing or shortness of breath. Patient denies any diaphoretic episodes. Patient denies any nausea. Patient denies any radiation of the pain. Patient denies any recent fever chills or cough. Patient states she did have a runny nose. Patient states she did feel congested last night so she took 2 Sudafed. Patient states last time she had this she had gastric reflux and it had the same symptoms. Patient states once he went To her house the pain subsided she's had no pain since. Patient denies any leg swelling or calf tenderness. Patient denies any lightheadedness or dizziness. - Related Data Home Medications Medication Instructions Recorded Confirmed Levothyroxine Sodium [Synthroid] 75 mcg PO DAILY 07/15/14 09/21/22 lisinopriL [Zestril] 5 mg PO DAILY 07/15/14 09/21/22 Vit C/E/Zn/Coppr/Lutein/Zeaxan 1 cap PO DAILY 06/02/17 09/21/22 [Preservision Areds 2 Softgel] Acetaminophen Tab [Tylenol Tab] 500 mg PO Q6H PRN 09/21/22 09/21/22 Cholecalciferol [Vitamin D3 (25 25 mcg PO DAILY 09/21/22 09/21/22 Mcg = 1000 Iu)] Previous Rx's Medication Instructions Recorded atenoloL [Tenormin] 50 mg PO DAILY 30 Days #30 tab 08/13/19 Allergies Allergy/AdvReac Type Severity Reaction Status Date / Time chlorthalidone AdvReac Severe Verified 09/21/22 10:49 hyponatremia 08/13/19 Review of Systems ROS Statement: Those systems with pertinent positive or pertinent negative responses have been documented in the HPI. ROS Other: All systems not noted in ROS Statement are negative. Past Medical History Past Medical History: Hypertension, Osteoarthritis (OA) History of Any Multi-Drug Resistant Organisms: None Reported Past Surgical History: Appendectomy, Cholecystectomy Additional Past Surgical History / Comment(s): cataract removed bilat. Past Anesthesia/Blood Transfusion Reactions: No Reported Reaction Past Psychological History: No Psychological Hx Reported Smoking Status: Unknown if ever smoked Past Alcohol Use History: None Reported Past Drug Use History: None Reported - Past Family History Mother Family Medical History: Dementia, Diabetes Mellitus Father Family Medical History: CVA/TIA General Exam - General Exam Comments Initial Comments: GENERAL: Patient is well-developed and well-nourished. Patient is nontoxic and well- hydrated and is in no acute distress. ENT: Neck is soft and supple. No significant lymphadenopathy is noted. Oropharynx is clear. Moist mucous membranes. Neck has full range of motion without eliciting any pain. EYES: The sclera were anicteric and conjunctiva were pink and moist. Extraocular movements were intact and pupils were equal round and reactive to light. Eyelids were unremarkable. PULMONARY: Unlabored respirations. Good breath sounds bilaterally. No audible rales rhonc hi or wheezing was noted. CARDIOVASCULAR: There is a regular rate and rhythm without any murmurs gallops or rubs. ABDOMEN: Soft and nontender with normal bowel sounds. SKIN: Skin is clear with no lesions or rashes and otherwise unremarkable. NEUROLOGIC: Patient is alert and oriented x3. Cranial nerves II through XII are grossly intact. Motor and sensory are also intact. Normal speech, volume and content. Symmetrical smile. MUSCULOSKELETAL: Normal extremities with adequate strength and full range of motion. No lower extremity swelling or edema. No calf tenderness. LYMPHATICS: No significant lymphadenopathy is noted PSYCHIATRIC: Normal psychiatric evaluation. Limitations: no limitations Course Vital Signs 09/21/22 09/21/22 09/21/22 08:09 09:02 09:45 Temperature 98.2 F Pulse Rate 92 84 79 Respiratory 18 18 18 Rate Blood Pressure 197/104 164/74 145/72 O2 Sat by Pulse 98 96 95 Oximetry 09/21/22 12:03 Temperature Pulse Rate 84 Respiratory 87 H Rate Blood Pressure 141/89 O2 Sat by Pulse 95 Oximetry Medical Decision Making - Medical Decision Making EKG is interpreted by me. EKG is of poor quality and will be repeated later however it shows a sinus rhythm at 70 bpm ND interval is 176 QRS is 118 QT interval 360 QTC is 411. Patient's EKG shows no ST segment elevation or depression there does appear to be an occasional ectopic atrial beat Repeat EKG was done because of the poor quality of the first EKG. EKG was interpreted by me. This EKG showed a sinus rhythm at 80 bpm ND interval was 200 QRS is 95 QT interval 388 QTC is 423. Patient's EKG shows no ST segment elevation or depression. Chest x-ray was interpreted by me chest x-ray showed no acute abnormality. CT of the chest rule out PE showed no PE no signs of any infiltrate. Patient's liver enzymes were all elevated I ordered a hepatitis panel. I spoke with sounds physician's agreed to admit the patient admitted the patient I wrote admitting orders I consult to Dr. Hinkle - Lab Data Result diagrams: 09/21/22 08:15 09/21/22 08:15 Lab Results 09/21/22 09/21/22 09/21/22 Range/Units 08:15 08:15 08:15 WBC 11.6 H (3.8-10.6) k/uL RBC 4.27 (3.80-5.40) m/uL Hgb 13.5 (11.4-16.0) gm/dL Hct 40.9 (34.0-46.0) % MCV 95.6 (80.0-100.0) fL MCH 31.6 (25.0-35.0) pg MCHC 33.1 (31.0-37.0) g/dL RDW 12.4 (11.5-15.5) % Plt Count 198 (150-450) k/uL MPV 7.8 Neutrophils % 92 % Lymphocytes % 3 % Monocytes % 4 % Eosinophils % 1 % Basophils % 0 % Neutrophils # 10.6 H (1.3-7.7) k/uL Lymphocytes # 0.4 L (1.0-4.8) k/uL Monocytes # 0.4 (0-1.0) k/uL Eosinophils # 0.1 (0-0.7) k/uL Basophils # 0.0 (0-0.2) k/uL PT (9.0-12.0) sec INR (<1.2) APTT (22.0-30.0) sec D-Dimer (<0.60) mg/L FEU Sodium 135 L (137-145) mmol/L Potassium 3.7 (3.5-5.1) mmol/L Chloride 100 (98-107) mmol/L Carbon Dioxide 28 (22-30) mmol/L Anion Gap 7 mmol/L BUN 17 (7-17) mg/dL Creatinine 0.64 (0.52-1.04) mg/dL Est GFR (CKD-EPI)AfAm >90 (>60 ml/min/1.73 sqM) Est GFR (CKD-EPI)NonAf 81 (>60 ml/min/1.73 sqM) Glucose 144 H (74-99) mg/dL Calcium 9.1 (8.4-10.2) mg/dL Magnesium 1.4 L (1.6-2.3) mg/dL Total Bilirubin 2.8 H (0.2-1.3) mg/dL AST 863 H (14-36) U/L ALT 537 H (4-34) U/L Alkaline Phosphatase 309 H (38-126) U/L Troponin I <0.012 (0.000-0.034) ng/mL Total Protein 7.1 (6.3-8.2) g/dL Albumin 4.2 (3.5-5.0) g/dL Amylase 35 (30-110) U/L Lipase 69 (23-300) U/L Coronavirus (PCR) (Not Detectd) 09/21/22 09/21/22 09/21/22 Range/Units 08:30 08:55 11:52 WBC (3.8-10.6) k/uL RBC (3.80-5.40) m/uL Hgb (11.4-16.0) gm/dL Hct (34.0-46.0) % MCV (80.0-100.0) fL MCH (25.0-35.0) pg MCHC (31.0-37.0) g/dL RDW (11.5-15.5) % Plt Count (150-450) k/uL MPV Neutrophils % % Lymphocytes % % Monocytes % % Eosinophils % % Basophils % % Neutrophils # (1.3-7.7) k/uL Lymphocytes # (1.0-4.8) k/uL Monocytes # (0-1.0) k/uL Eosinophils # (0-0.7) k/uL Basophils # (0-0.2) k/uL PT 10.5 (9.0-12.0) sec INR 1.0 (<1.2) APTT 23.9 (22.0-30.0) sec D-Dimer 1.83 H (<0.60) mg/L FEU Sodium (137-145) mmol/L Potassium (3.5-5.1) mmol/L Chloride (98-107) mmol/L Carbon Dioxide (22-30) mmol/L Anion Gap mmol/L BUN (7-17) mg/dL Creatinine (0.52-1.04) mg/dL Est GFR (CKD-EPI)AfAm (>60 ml/min/1.73 sqM) Est GFR (CKD-EPI)NonAf (>60 ml/min/1.73 sqM) Glucose (74-99) mg/dL Calcium (8.4-10.2) mg/dL Magnesium (1.6-2.3) mg/dL Total Bilirubin (0.2-1.3) mg/dL AST (14-36) U/L ALT (4-34) U/L Alkaline Phosphatase (38-126) U/L Troponin I (0.000-0.034) ng/mL Total Protein (6.3-8.2) g/dL Albumin (3.5-5.0) g/dL Amylase (30-110) U/L Lipase (23-300) U/L Coronavirus (PCR) Not Detected (Not Detectd) Disposition Clinical Impression: Chest pain, Hypomagnesemia, Hepatitis Disposition: ADMITTED IP TO THIS [facility] Referrals: Jose Burk MD [Primary Care Provider] - 1-2 days Time of Disposition: 12:45
[2022-09-21 09:20] LABS: Partial Thromboplastin Time 23.9 sec (22.0-30.0); Prothrombin Time 10.5 sec (9.0-12.0)
[2022-09-21 09:23] LABS: AST 863 U/L (14-36)
[2022-09-21] MEDS ORDERED: MAGNESIUM SULFATE-D5W PMX 1 GM in DEXTROSE/WATER 1 100ML.BAG IVPB ONE (11:35)
--- NOTE | 2022-09-21 12:19 | CT ---
EXAMINATION TYPE: CT chest angio for PE DATE OF EXAM: 09/21/2022 COMPARISON: NONE HISTORY: Chest pain, dyspnea CT DLP: 217.1 mGycm. Automated Exposure Control for Dose Reduction was Utilized. CONTRAST: CTA scan of the thorax is performed with IV Contrast, patient injected with 100 mL of Isovue 370, pul monary embolism protocol. MIP Images are created on CT scanner and reviewed. FINDINGS: LUNGS: Overall mosaic attenuation. No suspicious focal consolidation . No pulmonary masses. Some res piratory motion artifact degradation is present There is no pleural effusion or pneumothorax seen. T he tracheobronchial tree is patent. MEDIASTINUM: There is satisfactory enhancement of the pulmonary artery and its branches, there is no CT evidence for pulmonary embolism. Satisfactory enhancement of the thoracic aorta without aneurysm o r dissection . There are no greater than 1 cm hilar or mediastinal lymph nodes. No cardiomegaly or pericardial effusion is seen. Moderate size hiatal hernia. Coronary artery calcification is present w hich is noted marker for underlying coronary artery disease. OTHER: Scoliosis is present. IMPRESSION: No CT evidence for acute pulmonary embolism. Mild edema and/or atelectasis bilaterally. N o suspicious focal consolidation.
[2022-09-21] MEDS ORDERED: NITROGLYCERIN SL TABS 0.4 MG TAB SUBLINGUAL PRN (12:58)
[2022-09-21] MEDS ORDERED: NALOXONE 0.4 MG/ML 1 ML VIAL IV PRN (16:00)
[2022-09-21] MEDS ORDERED: ONDANSETRON 4 MG/2 ML VIAL IVP STA (16:02)
--- NOTE | 2022-09-21 16:02 | P.HPIM ---
History of Present Illness H&P Date: 09/21/22 Chief Complaint: chest pain Patient is a history of hypertension and hypothyroidism presenting with sudden onset chest pain that started last night. She claims that her chest pain was mostly substernal, radiating to the back as well as her right shoulder. She had some difficulty taking deep breaths. She denies any palpitations or lightheadedness, abdominal pain, nausea, vomiting, diarrhea, or constipation. Denies any urinary complaints. She recently traveled to [facility]. He denies any sick contacts. She denies any alcohol use, illicit drug use, heavy Tylenol use, or smoking history In the ED, she was hypertensive up to 197/104, respiratory signs were otherwise unremarkable.her lab work showed WBC count of 11.6, AST 863, ALT 537, ALP 309, bilirubin 2.8. D-dimer elevated to 1.83, negative troponin 2, COVID-19 negative. EKG shows normal sinus rhythm. CTA negative for PE. Patient seen and examined at bedside. Pertinent positives and negatives as discussed in HPI, a complete review of systems was performed and all other systems are negative. Vital signs reviewed General: nontoxic, no distress, appears at stated age Derm: warm, dry Head: atraumatic, normocephalic, symmetric Eyes: EOMI, no lid lag, anicteric sclera, pupils equal round reactive to light ENT: Nose and ears atraumatic Neck: No thyromegaly, supple Mouth: no lip lesion, mucus membranes moist Cardiovascular: S1S2 reg, no murmur, no edema Lungs: clear to auscultation bilateral, no rhonchi, no rales, no wheeze, no accessory muscle use Abdominal: soft, nontender to palpation, no guarding, no appreciable organomegaly Ext: no gross muscle atrophy, muscle strength muscle strength 5 out of 5 in all 4 extremities, no contractures Neuro: CN II-XII grossly intact Psych: Alert, oriented, appropriate affect Assessment/Plan: Chest pain, rule out ACS -Negative troponin -No active chest pain -EKG shows normal ST-T wave changes -Chest x-ray, CTA chest negative for any acute abnormalities -Cardiology consulted -Continue telemetry Acute hepatitis -Likely viral in etiology -Acute hepatitis panel pending -Denies any alcohol use or illicit drug use or heavy Tylenol use -GI consulted Hypertension Hypothyroidism -Medications reviewed and reconciled The patient is admitted with an anticipated [greater] than 2 midnight stay for evaluation of a hepatitis. Surrogate decision-maker: CODE STATUS: Full code DVT prophylaxis: Subcu heparin Anticipated discharge date: 09/[address]: Home A total of 47 minutes was spent on the care of this complex patient more than 50% of the time was spent in counseling and care coordination. Past Medical History Past Medical History: Hypertension, Osteoarthritis (OA) History of Any Multi-Drug Resistant Organisms: None Reported Past Surgical History: Appendectomy, Cholecystectomy Additional Past Surgical History / Comment(s): cataract removed bilat. Past Anesthesia/Blood Transfusion Reactions: No Reported Reaction Past Psychological History: No Psychological Hx Reported Smoking Status: Unknown if ever smoked Past Alcohol Use History: None Reported Past Drug Use History: None Reported - Past Family History Mother Family Medical History: Dementia, Diabetes Mellitus Father Family Medical History: CVA/TIA Medications and Allergies Home Medications Medication Instructions Recorded Confirmed Type Levothyroxine Sodium [Synthroid] 75 mcg PO DAILY 07/15/14 09/21/22 History lisinopriL [Zestril] 5 mg PO DAILY 07/15/14 09/21/22 History Vit C/E/Zn/Coppr/Lutein/Zeaxan 1 cap PO DAILY 06/02/17 09/21/22 History [Preservision Areds 2 Softgel] atenoloL [Tenormin] 50 mg PO DAILY 30 Days #30 tab 08/13/19 09/21/22 Rx Acetaminophen Tab [Tylenol Tab] 500 mg PO Q6H PRN 09/21/22 09/21/22 History Cholecalciferol [Vitamin D3 (25 25 mcg PO DAILY 09/21/22 09/21/22 History Mcg = 1000 Iu)] Allergies Allergy/AdvReac Type Severity Reaction Status Date / Time chlorthalidone AdvReac Severe Verified 09/21/22 10:49 hyponatremia 08/13/19 Physical Exam Vitals: Vital Signs Temp Pulse Resp BP Pulse Ox 09/21/22 15:51 95 09/21/22 12:03 84 87 H 141/89 95 09/21/22 09:45 79 18 145/72 95 09/21/22 09:02 84 18 164/74 96 09/21/22 08:09 98.2 F 92 18 197/104 98 Intake and Output 09/21/22 09/21/22 09/21/22 06:59 14:59 22:59 Other: Weight 71.668 kg Results CBC & Chem 7: 09/21/22 08:15 09/21/22 08:15 Labs: Abnormal Lab Results - Last 24 Hours (Table) 09/21/22 09/21/22 09/21/22 Range/Units 08:15 08:15 08:30 WBC 11.6 H (3.8-10.6) k/uL Neutrophils # 10.6 H (1.3-7.7) k/uL Lymphocytes # 0.4 L (1.0-4.8) k/uL D-Dimer 1.83 H (<0.60) mg/L FEU Sodium 135 L (137-145) mmol/L Glucose 144 H (74-99) mg/dL Magnesium 1.4 L (1.6-2.3) mg/dL Total Bilirubin 2.8 H (0.2-1.3) mg/dL AST 863 H (14-36) U/L ALT 537 H (4-34) U/L Alkaline Phosphatase 309 H (38-126) U/L
[2022-09-21] MEDS: HEPARIN SODIUM,PORCINE/PF 5,000 UNIT/0.5 ML SYRINGE SQ SCH ×2 (18:06→23:01)
[2022-09-21] MEDS: NITROGLYCERIN OINT 1 INCH/GM PACKET TOPICAL SCH ×2 (18:07→23:01)
[2022-09-21 19:25] LABS: Hepatitis A Antibody IgM Nonreactive (Nonreactive); Hepatitis B Core IgM Nonreactive (Nonreactive); Hepatitis B Surface Antigen Nonreactive (Nonreactive); Hepatitis C IgG Antibody Nonreactive (Nonreactive)
[2022-09-22] MEDS: LEVOTHYROXINE 75 MCG TAB PO SCH (06:28)
[2022-09-22] MEDS: NITROGLYCERIN OINT 1 INCH/GM PACKET TOPICAL SCH ×3 (06:28→16:28)
--- NOTE | 2022-09-22 08:40 | US ---
EXAMINATION TYPE: US gallbladder DATE OF EXAM: 09/22/2022 COMPARISON: NONE CLINICAL HISTORY: elevated LFTS. Pain TECHNIQUE: Multiple sonographic images of the right upper quadrant are obtained. FINDINGS: EXAM MEASUREMENTS: Liver Length: 13.5 cm Gallbladder Wall: .2 cm CBD: 1 cm Right Kidney: 10 x 3.7 x 4.7 cm VP CARDIOVASCULAR SERVICE LINE NOTES: Pancreas: Duct visualized 4 mm. Liver: Increased attenuation Gallbladder: Surgically absent Evidence for sonographic Vallejo's sign: no CBD: Upper limits. Right Kidney: No hydronephrosis or masses seen IMPRESSION: No significant abnormality appreciated at this time.
[2022-09-22] MEDS: ASPIRIN 81 MG PO SCH (08:44)
[2022-09-22] MEDS: HEPARIN SODIUM,PORCINE/PF 5,000 UNIT/0.5 ML SYRINGE SQ SCH ×3 (08:44→23:47)
[2022-09-22] MEDS: atenoloL 50 MG TAB PO SCH (08:44)
[2022-09-22] MEDS: lisinopriL 5 MG TAB PO SCH (08:44)
[2022-09-22] MEDS: CHOLECALCIFEROL 25 MCG (1000 IU) TABLET PO SCH (08:44)
[2022-09-22] MEDS ORDERED: ASPIRIN 325 MG TAB PO SCH (09:00)
[2022-09-22 10:13] LABS: Basophils % (A) 0 %; Eosinophils # (A) 0.1 k/uL (0-0.7); Eosinophils % (A) 1 %; HCT 39.1 % (34.0-46.0); HGB 12.7 gm/dL (11.4-16.0); Lymphocytes # (A) 0.5 k/uL (1.0-4.8); Lymphocytes % (A) 4 %; MCH 31.1 pg (25.0-35.0); MCHC 32.5 g/dL (31.0-37.0); MCV 95.5 fL (80.0-100.0); Mean Platelet Volume 9.3; Monocytes # (A) 0.5 k/uL (0-1.0); Monocytes % (A) 5 %; Neutrophils # (A) 9.9 k/uL (1.3-7.7); Neutrophils % (A) 89 %; Platelet Count 177 k/uL (150-450); RBC 4.09 m/uL (3.80-5.40); RDW 13.1 % (11.5-15.5); WBC 11.1 k/uL (3.8-10.6)
[2022-09-22 10:41] LABS: ALT 332 U/L (4-34); AST 252 U/L (14-36); African American GFR (CKD) 90 (>60 ml/min/1.73 sqM); Albumin 3.8 g/dL (3.5-5.0); Alkaline Phosphatase 268 U/L (38-126); Anion Gap 9 mmol/L; Blood Urea Nitrogen 15 mg/dL (7-17); Carbon Dioxide 25 mmol/L (22-30); Chloride 100 mmol/L (98-107); Glucose 167 mg/dL (74-99); Magnesium 1.7 mg/dL (1.6-2.3); Non-African American GFR(CKD) 78 (>60 ml/min/1.73 sqM); Potassium 3.6 mmol/L (3.5-5.1); Sodium 134 mmol/L (137-145); Total Bilirubin 4.2 mg/dL (0.2-1.3); Total Protein 6.6 g/dL (6.3-8.2)
--- NOTE | 2022-09-22 11:03 | P.DS ---
Providers Date of admission: 09/21/22 12:58 Expected date of discharge: 09/22/22 Attending physician: Leanna Rendon MD Consults: 09/21/22 12:58 Consult Physician Urgent Consulting Provider: Cardiology Enrique Consult Reason/Comments: Chest pain Do you want consulting provider notified?: Yes 09/21/22 12:59 Consult Physician Urgent Consulting Provider: Leonarda Hinkle Consult Reason/Comments: Hepatitis Do you want consulting provider notified?: Yes Primary care physician: Jose Burk MD Hospital Course: Patient is a history of hypertension and hypothyroidism presenting with sudden onset right lower chest pain that started last night. It was radiating to the back as well as her right shoulder. She had some difficulty taking deep breaths. She denies any palpitations or lightheadedness, abdominal pain, nausea, vomiting, diarrhea, or constipation. Denies any urinary complaints. She recently traveled to [place]. He denies any sick contact s. She denies any alcohol use, illicit drug use, heavy Tylenol use, or smoking history In the ED, she was hypertensive up to 197/104, respiratory signs were otherwise unremarkable.her lab work showed WBC count of 11.6, AST 863, ALT 537, ALP 309, bilirubin 2.8. D-dimer elevated to 1.83, negative troponin 2, COVID-19 negative. EKG shows normal sinus rhythm. CTA negative for PE. Patient was admitted to the hospital, was evaluated by GI, LFTs trended down the next day of admission. Hepatitis panel came back negative. Liver ultrasound was unremarkable. Troponin was negative 3, case was discussed with cardiology service, echocardiogram was done. Patient will follow-up with repair welder in the office. She was cleared by cardiology for discharge. She was told to follow with her primary care doctor to follow her LFTs. She will be discharged home in stable condition. Patient was seen and examined [id number] on the day of discharge 09/22 Time for discharge 35 minutes. Plan - Discharge Summary New Discharge Prescriptions: Continue lisinopriL [Zestril] 5 mg PO DAILY Levothyroxine Sodium [Synthroid] 75 mcg PO DAILY atenoloL [Tenormin] 50 mg PO DAILY 30 Days #30 tab Acetaminophen Tab [Tylenol] 500 mg PO Q6H PRN PRN Reason: Pain Or Fever > 100.5 Cholecalciferol [Vitamin D3 (25 Mcg = 1000 Iu)] 25 mcg PO DAILY Discontinued Vit C/E/Zn/Coppr/Lutein/Zeaxan [Preservision Areds 2 Softgel] 1 cap PO DAILY Discharge Medication List Levothyroxine Sodium [Synthroid] 75 mcg PO DAILY 07/15/14 [History] lisinopriL [Zestril] 5 mg PO DAILY 07/15/14 [History] atenoloL [Tenormin] 50 mg PO DAILY 30 Days #30 tab 08/13/19 [Rx] Acetaminophen Tab [Tylenol] 500 mg PO Q6H PRN 09/21/22 [History] Cholecalciferol [Vitamin D3 (25 Mcg = 1000 Iu)] 25 mcg PO DAILY 09/21/22 [History] Follow up Appointment(s)/Referral(s): Arnol Amezquita MD [Family Provider] - 1 Week Jose Burk MD [Primary Care Provider] - 1-2 days
--- NOTE | 2022-09-22 11:55 | P.CONS ---
History of Present Illness - Reason for Consult Consult date: 09/22/22 Hepatitis Requesting physician: Alphonso Oliveira - Chief Complaint Right upper quadrant pain/chest pain - History of Present Illness This is a pleasant 87-year-old female who presented to the emergency department with complaints of chest pain/right upper quadrant pain that radiated to her back. Patient states Tuesday she ate some high and Tuesdays when she woke up she was not feeling well she had some pain and discomfort she said it felt like an ache in the right upper quadrant region she thinks that it could be related to acid reflux. She states that she does have a history of GERD. She has had no prior EGD in the past. She does not take regular medication for acid reflux, takes Pepcid occasionally but states it does not help much. Patient was known to have elevated LFTs and gastroenterology was consulted. Patient denies any previous history of known liver disease, no history of alcohol abuse in the past, no history of hepatitis. She also denies any new medications within the last 1-2 months or any antibiotic treatment recently. She is status post Kim cystectomy in the 1970s for cholelithiasis. States she's not had any problems since then. Cardiology is on consultation as well, awaiting their recommendations. Patient states once she called 911 and came to the emergency department she states her pain actually had improved and she is in no pain at this time. She denied any associated nausea or vomiting, no fevers or chills. Admitting labs WBC 11.6 hemoglobin 13 hematocrit 40 platelet count 198,000 INR 1.0 d-dimer 1.8 sodium 135 potassium 3.7 BUN 17 creatinine 0.6 magnesium 1.4 total bilirubin 2.8 AST 863 ALT 537 alkaline phosphatase 309 Chest CTA negative for acute pulmonary embolism. Mild edema and/or atelectasis bilaterally. No suspicious focal consolidation Review of Systems REVIEW OF SYSTEMS: CARDIOPULMONARY: No chest pain or shortness of breath. Gastrointestinal: Patient states that she had chest pain yesterday and right upper quadrant pain that radiated to her back, now gone. No nausea or vomiting. No hematemesis, coffee-ground emesis. No rectal bleeding, or melena. GERD. GENITOURINARY: No dysuria or hematuria. MUSCULOSKELETAL: Reports normal range of motion. SKIN: No rashes. No jaundice. ENDOCRINE: No chills, fevers. No excessive weight gain or loss. No polydipsia or polyuria. PSYCHIATRIC: Unremarkable. NEUROLOGY: No change in mental status. Denies dizziness, headache. ENT: Vision unremarkable. CONSTITUTIONAL: No recent weight loss. No fever, chills, night sweats. Past Medical History Past Medical History: Hypertension, Osteoarthritis (OA) History of Any Multi-Drug Resistant Organisms: None Reported Past Surgical History: Appendectomy, Cholecystectomy Additional Past Surgical History / Comment(s): cataract removed bilat. Past Anesthesia/Blood Transfusion Reactions: No Reported Reaction Past Psychological History: No Psychological Hx Reported Smoking Status: Never smoker, Unknown if ever smoked Past Alcohol Use History: None Reported Past Drug Use History: None Reported - Past Family History Mother Family Medical History: Dementia, Diabetes Mellitus Father Family Medical History: CVA/TIA Medications and Allergies Home Medications Medication Instructions Recorded Confirmed Type Levothyroxine Sodium [Synthroid] 75 mcg PO DAILY 07/15/14 09/21/22 History lisinopriL [Zestril] 5 mg PO DAILY 07/15/14 09/21/22 History atenoloL [Tenormin] 50 mg PO DAILY 30 Days #30 tab 08/13/19 09/21/22 Rx Acetaminophen Tab [Tylenol] 500 mg PO Q6H PRN 09/21/22 09/21/22 History Cholecalciferol [Vitamin D3 (25 25 mcg PO DAILY 09/21/22 09/21/22 History Mcg = 1000 Iu)] Diltiazem Oral [Cardizem Oral] 30 mg PO TID #90 tab 09/22/22 Rx Allergies Allergy/AdvReac Type Severity Reaction Status Date / Time chlorthalidone AdvReac Severe Verified 09/21/22 10:49 hyponatremia 08/13/19 Physical Exam Vitals: Vital Signs Temp Pulse Pulse Resp BP BP Pulse Ox 09/22/22 08:00 98.6 F 120 H 16 147/72 94 L 09/22/22 04:00 98.1 F 81 16 165/72 94 L 09/22/22 00:00 98.5 F 80 16 138/66 93 L 09/21/22 20:00 98.8 F 86 18 127/58 95 09/21/22 16:35 99.6 F 89 16 158/85 97 09/21/22 15:51 95 09/21/22 12:03 84 87 H 141/89 95 Intake and Output 09/21/22 09/22/22 09/22/22 22:59 06:59 14:59 Intake Total 240 Balance 240 Intake: Oral 240 Other: Voiding Method Toilet Toilet Toilet # Voids 1 1 Weight 71.668 kg General appearance: The patient is alert, oriented, appears in no acute distress. HET: Head is normocephalic and atraumatic. Conjunctiva pink. Sclera anicteric. Neck: Supple without lymphadenopathy. Trachea midline. Heart: S1 S2. Regular rate and rhythm. Lungs: Clear to auscultation. Abdomen: Soft, nontender, nondistended with bowel sounds. No guarding or rigidity. Skin: No rashes. No jaundice. Extremities: Normal skin color and turgor. No pedal edema. Neurological: No focal deficits. Alert and oriented x3. Results CBC & Chem 7: 09/22/22 09:32 09/22/22 09:32 Labs: Abnormal Lab Results - Last 24 Hours (Table) 09/21/22 Range/Units 08:30 D-Dimer 1.83 H (<0.60) mg/L FEU Comments: Gallbladder ultrasound report of increased attenuation of the liver, gallbladder surgically absent. CBD 1 cm no hydronephrosis or mass seen. Assessment and Plan (1) Elevated LFTs Narrative/Plan: 87-year-old female who presented to the emergency department by ambulance with complaints of chest pain/epigastric pain. Patient states that it does seem similar to acid reflux that she has experienced in the past. However she was noted on admission to have elevated LFTs. No history of liver disease in the past. She does have a history of prior cholecystectomy in 1970 for cholelithiasis however has not had any problems since then. She denies any new medications no recent antibiotics. Denies any previous history of alcohol abuse or current alcohol use. Hepatitis panel was nonreactive, gallbladder ultrasound was ordered, CBD within upper limits of normal at 1.0. Unclear etiology at this time. Need to consider possible choledocholithiasis, however likely stone passed this patient's pain has improved. Current Visit: Yes Status: Acute Code(s): R79.89 - OTHER SPECIFIED ABNORMAL FINDINGS OF BLOOD CHEMISTRY SNOMED Code(s): 504328253 (2) Epigastric pain Current Visit: Yes Status: Acute Code(s): R10.13 - EPIGASTRIC PAIN SNOMED Code(s): 74249450 (3) GERD (gastroesophageal reflux disease) Current Visit: Yes Status: Acute Code(s): K21.9 - GASTRO-ESOPHAGEAL REFLUX DISEASE WITHOUT ESOPHAGITIS SNOMED Code(s): 379167280 Plan: 1. Continue symptomatic and supportive care 2. Gallbladder ultrasound ordered 3. Daily CMP 4. Avoid hepatotoxic medications 5. Await recommendations from cardiology 6. Recommend patient not be discharged and undergo MRCP as there is been increase in total bilirubin. Patient has had multiple episodes of this pain. Rule out CBD stone. 7. Nothing by mouth after midnight for possible ERCP if needed Thank you for this consult, we will continue to follow. Dr. Gilmar Hinkle I agree with the dictator's note, documented as a scribe by Liz Arnold.
[2022-09-22 11:59] VITALS: BMI 27.1
--- NOTE | 2022-09-22 12:16 | P.CRDCN ---
History of Present Illness Consult date: 09/22/22 Consult reason: chest pain History of present illness: History of present illness: This is an 87-year-old female patient with past medical history of hypertension and follows with Dr. DANAY Amezquita. She denies any history of coronary artery disease and states she has stress test done a few years ago that was apparently normal. Patient complains of pain in the lower right rib area and epigastric area that radiated around to her back and across the entire back, sudden onset and lasted through the night but went away by the time she arrived to the hospital. She does state she has some problems with heartburn on a regular basis. She denies having any shortness of breath, lightheadedness or dizziness, no palpitations. *EKG sinus rhythm with no acute ST-T wave changes *Telemetry monitoring revealed episodes of SVT jumping to 180 bpm *CTA of the chest negative for pulmonary embolism. Mild edema and or atelectasis bilaterally *Chest x-ray reveals no acute cardio pulmonary process. No smoking change *Abdominal ultrasound reveals no significant abnormality appreciated *Laboratory studies WBC 11.6, hemoglobin 13.5, platelet count 198. D-dimer 1.83, creatinine 0.64. Magnesium 1.4 total bilirubin 2.8, AST 863, ALT 537, alkaline phosphatase 309. Troponin negative on 3 draws. COVID-19 carotid virus PCR not detected. Hepatitis panel negative. *Echocardiogram 07/2019 reveals EF of 60-65%, mild mitral regurgitation, mild tricuspid regurgitation *Home cardiac medications: Lisinopril 5 mg daily, atenolol 50 mg daily Review Of Systems: At the time of my evaluation: Constitutional: No fever, no chills. No weakness, fatigue or lethargy. EENT: No headache. No dizziness. Lungs: No shortness of breath, cough, no sputum production. No wheezing. Cardiovascular: No chest pain, no lower extremity edema. No palpitations. No paroxysmal nocturnal dyspnea. No orthopnea. No lightheadedness or dizziness. No syncopal episodes. Abdominal: No abdominal pain. No nausea, vomiting. No diarrhea. No constipation. No bloody or tarry stools. No loss of appetite. Genitourinary: No dysuria.. No urinary retention. Musculoskeletal: No myalgias. No muscle weakness, no gait dysfunction, no frequent falls. No back pain. No neck pain. Integumentary: No wounds, no lesions. No rash or pruritus. No unusual bruising. Neurologic: No aphasia. No facial droop. No change in mentation. No head injury. No headache. No paralysis. No paresthesia. Psychiatric: No depression. No anxiety. Endocrine: No abnormal blood sugars. Physical examination: Gen: This is an 87-year-old female. Patient is resting in bed and a ppears comfortable and in no acute distress. VS: Reviewed HEENT: Head is atraumatic, normocephalic. Pupils equal, round. Sclerae is anicteric. NECK: Supple. No JVD. No lymphadenopathy. No thyromegaly. LUNGS: Clear to auscultation. No wheezes or rhonchi. No intercostal retractions. HEART: Regular rate and rhythm. No murmur. ABDOMEN: Soft. Bowel sounds are present. No masses. No tenderness. No right upper quadrant tenderness. EXTREMITIES: No pedal edema. No calf tenderness. NEUROLOGICAL: Patient is awake, alert and oriented x3. Cranial nerves 2 through 12 are grossly intact. Assessment: Chest pain, acute coronary syndrome ruled out Episodes of SVT Elevated liver function tests History of hypertension Plan: Continue patient on atenolol 50 mg daily Add Cardizem 30 mg 3 times daily Obtain 2-D echocardiogram and Doppler study to assess cardiac structure and function If no new findings on echocardiogram, patient will be cleared for discharge home with planned follow-up with Dr. DANAY Amezquita for outpatient monitoring. Further recommendations to follow based upon clinical course Thank you kindly for this consultation. Nurse practitioner note has been reviewed, I agree with documented findings and plan of care. Patient was seen and examined. Past Medical History Past Medical History: Hypertension, Osteoarthritis (OA) History of Any Multi-Drug Resistant Organisms: None Reported Past Surgical History: Appendectomy, Cholecystectomy Additional Past Surgical History / Comment(s): cataract removed bilat. Past Anesthesia/Blood Transfusion Reactions: No Reported Reaction Past Psychological History: No Psychological Hx Reported Smoking Status: Never smoker, Unknown if ever smoked Past Alcohol Use History: None Reported Past Drug Use History: None Reported - Past Family History Mother Family Medical History: Dementia, Diabetes Mellitus Father Family Medical History: CVA/TIA Medications and Allergies Home Medications Medication Instructions Recorded Confirmed Type Levothyroxine Sodium [Synthroid] 75 mcg PO DAILY 07/15/14 09/21/22 History lisinopriL [Zestril] 5 mg PO DAILY 07/15/14 09/21/22 History atenoloL [Tenormin] 50 mg PO DAILY 30 Days #30 tab 08/13/19 09/21/22 Rx Acetaminophen Tab [Tylenol] 500 mg PO Q6H PRN 09/21/22 09/21/22 History Cholecalciferol [Vitamin D3 (25 25 mcg PO DAILY 09/21/22 09/21/22 History Mcg = 1000 Iu)] Diltiazem Oral [Cardizem Oral] 30 mg PO TID #90 tab 09/22/22 Rx Allergies Allergy/AdvReac Type Severity Reaction Status Date / Time chlorthalidone AdvReac Severe Verified 09/21/22 10:49 hyponatremia 08/13/19 Physical Exam Vitals: Vital Signs Temp Pulse Pulse Resp BP BP Pulse Ox 09/22/22 08:00 98.6 F 120 H 16 147/72 94 L 09/22/22 04:00 98.1 F 81 16 165/72 94 L 09/22/22 00:00 98.5 F 80 16 138/66 93 L 09/21/22 20:00 98.8 F 86 18 127/58 95 09/21/22 16:35 99.6 F 89 16 158/85 97 09/21/22 15:51 95 09/21/22 12:03 84 87 H 141/89 95 09/21/22 09:45 79 18 145/72 95 09/21/22 09:02 84 18 164/74 96 Intake and Output 09/21/22 09/22/22 09/22/22 22:59 06:59 14:59 Intake Total 240 Balance 240 Intake: Oral 240 Other: Voiding Method Toilet Toilet # Voids 1 1 Weight 71.668 kg Results 09/22/22 09:32 09/22/22 09:32 Cardiac Enzymes 09/21/22 09/21/22 09/21/22 Range/Units 08:15 08:15 13:20 AST 863 H (14-36) U/L Troponin I <0.012 <0.012 (0.000-0.034) ng/mL 09/21/22 Range/Units 15:50 AST (14-36) U/L Troponin I <0.012 (0.000-0.034) ng/mL Coagulation 09/21/22 Range/Units 08:55 PT 10.5 (9.0-12.0) sec APTT 23.9 (22.0-30.0) sec CBC 09/21/22 Range/Units 08:15 WBC 11.6 H (3.8-10.6) k/uL RBC 4.27 (3.80-5.40) m/uL Hgb 13.5 (11.4-16.0) gm/dL Hct 40.9 (34.0-46.0) % Plt Count 198 (150-450) k/uL Comprehensive Metabolic Panel 09/21/22 Range/Units 08:15 Sodium 135 L (137-145) mmol/L Potassium 3.7 (3.5-5.1) mmol/L Chloride 100 (98-107) mmol/L Carbon Dioxide 28 (22-30) mmol/L BUN 17 (7-17) mg/dL Creatinine 0.64 (0.52-1.04) mg/dL Glucose 144 H (74-99) mg/dL Calcium 9.1 (8.4-10.2) mg/dL AST 863 H (14-36) U/L ALT 537 H (4-34) U/L Alkaline Phosphatase 309 H (38-126) U/L Total Protein 7.1 (6.3-8.2) g/dL Albumin 4.2 (3.5-5.0) g/dL Current Medications Generic Name Dose Route Start Last Admin Trade Name Freq PRN Reason Stop Dose Admin Aspirin 81 mg 09/22/22 09:00 Aspirin 81 Mg PO DAILY [facility] Atenolol 50 mg 09/22/22 09:00 Atenolol 50 Mg Tab PO DAILY [facility] Cholecalciferol 25 mcg 09/22/22 09:00 Cholecalciferol 25 Mcg (1000 Iu) Tablet PO DAILY [facility] Heparin Sodium (Porcine) 5,000 unit 09/21/22 16:00 09/21/22 23:01 Heparin Sodium,Porcine/Pf 5,000 Unit/0.5 Ml Syringe SQ 5,000 unit Q8HR DENNIS Administration Levothyroxine Sodium 75 mcg 09/22/22 06:30 09/22/22 06:28 Levothyroxine 75 Mcg Tab PO 75 mcg DAILY@0630 [facility] Administration Lisinopril 5 mg 09/22/22 09:00 Lisinopril 5 Mg Tab PO DAILY [facility] Naloxone HCl 0.2 mg 09/21/22 16:00 Naloxone 0.4 Mg/Ml 1 Ml Vial IV Q2M PRN Opioid Reversal Nitroglycerin 0.4 mg 09/21/22 12:58 Nitroglycerin Sl Tabs 0.4 Mg Tab SUBLINGUAL Q5M PRN Chest Pain Nitroglycerin 1 inch 09/21/22 18:00 09/22/22 06:28 Nitroglycerin Oint 1 Inch/Gm Packet TOPICAL 1 inch Q6HR [facility] Administration Intake and Output 09/21/22 09/22/22 09/22/22 22:59 06:59 14:59 Intake Total 240 Balance 240 Intake: Oral 240 Other: Voiding Method Toilet Toilet # Voids 1 1 Weight 71.668 kg 09/21/22 08:15 09/21/22 08:15
[2022-09-22] MEDS: DILTIAZEM ORAL 30 MG TAB PO SCH ×3 (12:39→21:48)
[2022-09-22] MEDS: PANTOPRAZOLE 40 MG TABLET PO SCH (12:40)
--- NOTE | 2022-09-22 15:06 | P.PN ---
Subjective Progress Note Date: 09/22/22 Principal diagnosis: abdomen and chest pain Doing well, pain has improved. No nausea or vomiting. No fevers. On tele she was having episodes of SVT jumping to 180 bpm, last night. Objective - Vital Signs Vital signs: Vital Signs Temp 98.2 F 09/22/22 11:49 Pulse 77 09/22/22 11:49 Resp 16 09/22/22 11:49 BP 130/60 09/22/22 11:49 Pulse Ox 93 L 09/22/22 11:49 FiO2 Intake & Output 09/21/22 09/22/22 09/22/22 18:59 06:59 18:59 Intake Total 240 180 Balance 240 180 Weight 71.668 kg 71.668 kg Intake: Oral 240 180 Other: Voiding Method Toilet Toilet # Voids 1 - Exam Constitutional: No acute distress, conversant, pleasant Eyes:Anicteric sclerae, moist conjunctiva, no lid-lag, PERRLA, ENMT: Oropharynx clear, no erythema, exudates Neck: Supple, FROM, no masses, or JVD, No carotid bruits, No thyromegaly Lungs: Clear to auscultation, Clear to percussion, Normal respiratory effort, no accessory muscle use Cardiovascular: Heart regular in rate and rhythm, No murmurs, gallops, or rubs, No peripheral edema Abdominal: Soft, Nontender, no guarding, rebound or rigidity, Normoactive bowel sounds, No hepatomegaly, No splenomegaly, No palpable mass Skin: Normal temperature, tone, texture, turgor, no induration, No subcutaneous nodules, No rash, lesions, No ulcers Extremities: No digital cyanosis, No clubbing, Pedal pulses intact and symmetrical, Radial pulses intact and symmetrical, No calf tenderness Psychiatric: Alert and oriented to person, place and time, appropriate affect, intact judgement Neuro: Muscles Strength 5/5 in all 4 extremities, Sensation to light touch grossly present throughout, Cranial nerves II-XII grossly intact, no focal sensory deficits - Labs CBC & Chem 7: 09/22/22 09:32 09/22/22 09:32 Labs: Abnormal Lab Results - Last 24 Hours (Table) 09/22/22 09/22/22 Range/Units 09:32 09:32 WBC 11.1 H (3.8-10.6) k/uL Neutrophils # 9.9 H (1.3-7.7) k/uL Lymphocytes # 0.5 L (1.0-4.8) k/uL Sodium 134 L (137-145) mmol/L Glucose 167 H (74-99) mg/dL Total Bilirubin 4.2 H (0.2-1.3) mg/dL AST 252 H (14-36) U/L ALT 332 H (4-34) U/L Alkaline Phosphatase 268 H (38-126) U/L Assessment and Plan Plan: Chest pain, ACS ruled out SVT -Seen by cardio -Chest x-ray, CTA chest negative for any acute abnormalities -Started on cardizem due to having runs of SVT, will continue b-malu. -Continue telemetry Acute hepatitis with jaundice. Elevated LFTs -Likely viral in etiology, could be sec to biliary stone that passed. -Hepatitis panel negative -GI consulted, will get MRCP, to be done tomorrow. Hypertension Hypothyroidism -Medications reviewed and reconciled Surrogate decision-maker: CODE STATUS: Full code DVT prophylaxis: Subcu heparin Anticipated discharge date: 09/[address]: Home
[2022-09-22 15:57] LABS: Chol/HDL Ratio 2.38 Ratio; VLDL Calculation 14.36 mg/dL (5.00-40.00)
[2022-09-23] MEDS: NITROGLYCERIN OINT 1 INCH/GM PACKET TOPICAL SCH ×4 (01:11→16:31)
--- NOTE | 2022-09-23 07:34 | CA ---
Transthoracic Echo Report Name: Marisela Pierce Age: 87 Gender: F : 1935 Exam Date: 09/22/2022 14:22 Exam Location: [facility] Ht (in): 64 Wt (lb): 158 Ordering Physician: Jackelin Bravo Attending/Referring Phys: [id number], Lawrence Sericulturist Macarena Monahan RDCS Procedure CPT: Indications: LVF Cardiac Hx: Technical Quality: Good Contrast 1: Total Dose (mL): Contrast 2: Total Dose (mL): MEASUREMENTS (Male / Female) Normal Values 2D ECHO LV Diastolic Diameter PLAX 3.5 cm 4.2 - 5.9 / 3.9 - 5.3 cm LV Systolic Diameter PLAX 2.3 cm IVS Diastolic Thickness 1.2 cm 0.6 - 1.0 / 0.6 - 0.9 cm LVPW Diastolic Thickness 1.2 cm 0.6 - 1.0 / 0.6 - 0.9 cm LV Relative Wall Thickness 0.7 RV Internal Dim ED PLAX 3.0 cm LA Systolic Diameter LX 3.4 cm 3.0 - 4.0 / 2.7 - 3.8 cm LA Volume 47.5 cm??? 18 - 58 / 22 - 52 cm??? M-MODE Aortic Root Diameter MM 2.8 cm MV E Point Septal Separation 0.8 cm AV Cusp Separation MM 2.0 cm DOPPLER AV Peak Velocity 162.3 cm/s AV Peak Gradient 10.5 mmHg MV Area PHT 4.3 cm??? Mitral E Point Velocity 111.1 cm/s Mitral A Point Velocity 104.1 cm/s Mitral E to A Ratio 1.1 MV Deceleration Time 176.3 ms MV E' Velocity 7.0 cm/s Mitral E to MV E' Ratio 15.9 TR Peak Velocity 270.9 cm/s TR Peak Gradient 29.4 mmHg Right Ventricular Systolic Press 33.9 mmHg FINDINGS Left Ventricle Left ventricular ejection fraction is estimated at 55-60 %. Small left ventricular cavity. Mildly increased septal wall thickness. Mildly increased posterior wall thickness. Right Ventricle Normal right ventricular size. Mild pulmonary hypertension. Right Atrium Normal right atrial size. Left Atrium Normal left atrial size. No evidence for an atrial septal defect. Mitral Valve Structurally normal mitral valve. Trace to mild mitral regurgitation. Aortic Valve Trileaflet aortic valve. No aortic valve stenosis or regurgitation. Tricuspid Valve Structurally normal tricuspid valve. Mild tricuspid regurgitation. Pulmonic Valve Structurally normal pulmonic valve. Trace pulmonic regurgitation. Pericardium Normal pericardium. No pericardial effusion. Aorta Normal size aortic root and proximal ascending aorta. CONCLUSIONS Normal LV size and systolic function with mild concentric LVH. There is aortic valve sclerosis and mitral annular calcification. Mild mitral and tricuspid insufficiency. No pericardial effusion Previewed by: Dr. Arnol Amezquita MD (Electronically Signed) Final Date: 23 September 2022 07:33
[2022-09-23 10:58] LABS: ALT 188 U/L (4-34); AST 80 U/L (14-36); African American GFR (CKD) >90 (>60 ml/min/1.73 sqM); Albumin 3.3 g/dL (3.5-5.0); Alkaline Phosphatase 222 U/L (38-126); Anion Gap 6 mmol/L; Blood Urea Nitrogen 13 mg/dL (7-17); Calcium 8.2 mg/dL (8.4-10.2); Carbon Dioxide 28 mmol/L (22-30); Chloride 102 mmol/L (98-107); Glucose 90 mg/dL (74-99); Magnesium 1.7 mg/dL (1.6-2.3); Non-African American GFR(CKD) 79 (>60 ml/min/1.73 sqM); Potassium 3.5 mmol/L (3.5-5.1); Sodium 136 mmol/L (137-145); Total Protein 5.9 g/dL (6.3-8.2)
[2022-09-23] MEDS: PANTOPRAZOLE 40 MG TABLET PO SCH (11:11)
[2022-09-23] MEDS: HEPARIN SODIUM,PORCINE/PF 5,000 UNIT/0.5 ML SYRINGE SQ SCH ×2 (11:11→16:31)
[2022-09-23] MEDS: ASPIRIN 81 MG PO SCH (11:11)
[2022-09-23] MEDS: LEVOTHYROXINE 75 MCG TAB PO SCH (11:11)
[2022-09-23] MEDS: DILTIAZEM ORAL 30 MG TAB PO SCH ×3 (11:11→21:30)
[2022-09-23] MEDS: lisinopriL 5 MG TAB PO SCH (11:11)
[2022-09-23] MEDS: atenoloL 50 MG TAB PO SCH (11:11)
[2022-09-23] MEDS: CHOLECALCIFEROL 25 MCG (1000 IU) TABLET PO SCH (11:11)
[2022-09-23 11:13] LABS: Basophils % (A) 0 %; Eosinophils # (A) 0.1 k/uL (0-0.7); Eosinophils % (A) 1 %; HCT 36.8 % (34.0-46.0); HGB 12.1 gm/dL (11.4-16.0); Lymphocytes # (A) 0.6 k/uL (1.0-4.8); Lymphocytes % (A) 9 %; MCH 31.9 pg (25.0-35.0); MCHC 32.8 g/dL (31.0-37.0); MCV 97.4 fL (80.0-100.0); Mean Platelet Volume 8.8; Monocytes # (A) 0.5 k/uL (0-1.0); Monocytes % (A) 6 %; Neutrophils # (A) 5.9 k/uL (1.3-7.7); Neutrophils % (A) 81 %; Platelet Count 159 k/uL (150-450); RBC 3.78 m/uL (3.80-5.40); RDW 12.9 % (11.5-15.5); WBC 7.2 k/uL (3.8-10.6)
--- NOTE | 2022-09-23 14:00 | P.PN ---
Subjective Progress Note Date: 09/23/22 Principal diagnosis: Abdominal pain, transaminitis This is a pleasant 87-year-old female who presented to the emergency department with complaints of chest pain/right upper quadrant pain that radiated to her back. Patient states Tuesday she ate some high and Tuesdays when she woke up she was not feeling well she had some pain and discomfort she said it felt like an ache in the right upper quadrant region she thinks that it could be related to acid reflux. She states that she does have a history of GERD. She has had no prior EGD in the past. She does not take regular medication for acid reflux, takes Pepcid occasionally but states it does not help much. Patient was known to have elevated LFTs and gastroenterology was consulted. Patient denies any previous history of known liver disease, no history of alcohol abuse in the past, no history of hepatitis. She also denies any new medications within the last 1-2 months or any antibiotic treatment recently. She is status post Kim cystectomy in the 1970s for cholelithiasis. States she's not had any problems since then. Cardiology is on consultation as well, awaiting their recommendations. Patient states once she called 911 and came to the emergency department she states her pain actually had improved and she is in no pain at this time. She denied any associated nausea or vomiting, no fevers or chills. 09/23/2022. Patient seen and examined as a follow-up. Underwent MRCP this morning however results are still pending. Patient denies any abdominal pain nausea or vomiting. She's been afebrile. LFTs are trending down today. Total bilirubin 2.0 AST 88 ALT 188 alkaline phosphatase 222. Patient is eating a regular diet again tolerating it well. Objective - Vital Signs Vital signs: Vital Signs Temp 98.5 F 09/23/22 08:00 Pulse 75 09/23/22 11:10 Resp 17 09/23/22 11:10 BP 176/73 09/23/22 11:10 Pulse Ox 92 L 09/23/22 11:10 FiO2 Intake & Output 09/22/22 09/23/22 09/23/22 18:59 06:59 18:59 Intake Total 840 Balance 840 Weight 71.668 kg Intake: Oral 840 Other: Voiding Method Toilet Toilet # Voids 1 1 - Exam General appearance: The patient is alert, oriented, appears in no acute distress. HET: Head is normocephalic and atraumatic. Conjunctiva pink. Sclera anicteric. Neck: Supple without lymphadenopathy. Abdomen: Soft, nontender, nondistended with bowel sounds. No guarding or rigidity. Extremities: Normal skin color and turgor. No pedal edema Skin: No rashes, no jaundice Neurological: No focal deficits. Alert and oriented. - Labs CBC & Chem 7: 09/23/22 09:51 09/23/22 09:51 Labs: Abnormal Lab Results - Last 24 Hours (Table) 09/22/22 09/23/22 09/23/22 Range/Units 09:32 09:51 09:51 RBC 3.78 L (3.80-5.40) m/uL Lymphocytes # 0.6 L (1.0-4.8) k/uL Sodium 136 L (137-145) mmol/L Calcium 8.2 L (8.4-10.2) mg/dL Total Bilirubin 2.0 H (0.2-1.3) mg/dL AST 80 H (14-36) U/L ALT 188 H (4-34) U/L Alkaline Phosphatase 222 H (38-126) U/L Total Protein 5.9 L (6.3-8.2) g/dL Albumin 3.3 L (3.5-5.0) g/dL Cholesterol 204.00 H (0.00-200.00) mg/dL HDL Cholesterol 85.60 H (40.00-60.00) mg/dL Assessment and Plan (1) Elevated LFTs Narrative/Plan: 87-year-old female who presented to the emergency department by ambulance with complaints of chest pain/epigastric pain. Patient states that it does seem similar to acid reflux that she has experienced in the past. However she was noted on admission to have elevated LFTs. No history of liver disease in the past. She does have a history of prior cholecystectomy in 1970 for cholelithiasis however has not had any problems since then. She denies any new medications no recent antibiotics. Denies any previous history of alcohol abuse or current alcohol use. Hepatitis panel was nonreactive, gallbladder ultrasound was ordered, CBD within upper limits of normal at 1.0. Unclear etiology at this time. Need to consider possible choledocholithiasis, however likely stone passed this patient's pain has improved. LFTs are trending down. MRCP is currently pending results. Likely patient may have passed biliary stone. If MRCP negative for CBD stone obstruction patient may be discharged home. Current Visit: Yes Status: Acute Code(s): R79.89 - OTHER SPECIFIED ABNORMAL FINDINGS OF BLOOD CHEMISTRY SNOMED Code(s): 703161353 (2) Epigastric pain Current Visit: Yes Status: Acute Code(s): R10.13 - EPIGASTRIC PAIN SNOMED Code(s): 73700780 (3) GERD (gastroesophageal reflux disease) Current Visit: Yes Status: Acute Code(s): K21.9 - GASTRO-ESOPHAGEAL REFLUX DISEASE WITHOUT ESOPHAGITIS SNOMED Code(s): 792127066 (4) Choledocholithiasis Narrative/Plan: Patient reportedly has multiple CBD stones per primary medicine team, they stated they spoke to radiologist regarding MRCP results. Patient will be scheduled for ERCP tomorrow. Current Visit: Yes Status: Acute Code(s): K80.50 - CALCULUS OF BILE DUCT W/O CHOLANGITIS OR CHOLECYST W/O OBST SNOMED Code(s): 222811765 Plan: 1. Continue symptomatic and supportive care 2. MRCP completed, pending results 3. Daily CMP 4. LFTs trending down, patient pain has resolved. 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 5. Will plan for ERCP tomorrow, keep nothing by mouth after midnight 6. Hold subcutaneous heparin 7. Give Levaquin and indomethacin one hour prior to procedure Thank you for this consult, we will continue to follow. Dr. Gilmar Hinkle I agree with the dictator's note, documented as a scribe by Liz Arnold.
--- NOTE | 2022-09-23 14:27 | P.PN ---
Subjective Progress Note Date: 09/23/22 Principal diagnosis: abdomen and chest pain Patient doing well, no further episodes of abdominal pain, no nausea or vomiting. No fevers or chills. Objective - Vital Signs Vital signs: Vital Signs Temp 98.5 F 09/23/22 08:00 Pulse 75 09/23/22 11:10 Resp 17 09/23/22 11:10 BP 176/73 09/23/22 11:10 Pulse Ox 92 L 09/23/22 11:10 FiO2 Intake & Output 09/22/22 09/23/22 09/23/22 18:59 06:59 18:59 Intake Total 840 Balance 840 Weight 71.668 kg Intake: Oral 840 Other: Voiding Method Toilet Toilet # Voids 1 1 - Exam Constitutional: No acute distress, conversant, pleasant Eyes:Anicteric sclerae, moist conjunctiva, no lid-lag, PERRLA, ENMT: Oropharynx clear, no erythema, exudates Neck: Supple, FROM, no masses, or JVD, No carotid bruits, No thyromegaly Lungs: Clear to auscultation, Clear to percussion, Normal respiratory effort, no accessory muscle use Cardiovascular: Heart regular in rate and rhythm, No murmurs, gallops, or rubs, No peripheral edema Abdominal: Soft, Nontender, no guarding, rebound or rigidity, Normoactive bowel sounds, No hepatomegaly, No splenomegaly, No palpable mass Skin: Normal temperature, tone, texture, turgor, no induration, No subcutaneous nodules, No rash, lesions, No ulcers Extremities: No digital cyanosis, No clubbing, Pedal pulses intact and symmetrical, Radial pulses intact and symmetrical, No calf tenderness Psychiatric: Alert and oriented to person, place and time, appropriate affect, intact judgement Neuro: Muscles Strength 5/5 in all 4 extremities, Sensation to light touch grossly present throughout, Cranial nerves II-XII grossly intact, no focal sen josé miguel deficits - Labs CBC & Chem 7: 09/23/22 09:51 09/23/22 09:51 Labs: Abnormal Lab Results - Last 24 Hours (Table) 09/22/22 09/23/22 09/23/22 Range/Units 09:32 09:51 09:51 RBC 3.78 L (3.80-5.40) m/uL Lymphocytes # 0.6 L (1.0-4.8) k/uL Sodium 136 L (137-145) mmol/L Calcium 8.2 L (8.4-10.2) mg/dL Total Bilirubin 2.0 H (0.2-1.3) mg/dL AST 80 H (14-36) U/L ALT 188 H (4-34) U/L Alkaline Phosphatase 222 H (38-126) U/L Total Protein 5.9 L (6.3-8.2) g/dL Albumin 3.3 L (3.5-5.0) g/dL Cholesterol 204.00 H (0.00-200.00) mg/dL HDL Cholesterol 85.60 H (40.00-60.00) mg/dL Assessment and Plan Plan: Chest pain, ACS ruled out SVT -Seen by cardio -Chest x-ray, CTA chest negative for any acute abnormalities -Started on cardizem due to having runs of SVT, continue b-malu. -Continue telemetry Acute hepatitis with jaundice. Cholelithiasis Obstructive jaundice Elevated LFTs -Sec to biliary stone -Hepatitis panel negative -GI consulted, discussed MRCP with radiologist, showing multiple bile duct stones and CBD dilation up to 1.3cm, d/w GI, going for ERCP tomorrow. Hypertension Hypothyroidism -Medications reviewed and reconciled Surrogate decision-maker: CODE STATUS: Full code DVT prophylaxis: Subcu heparin Anticipated discharge date: am Anticipated discharge place: Home
--- NOTE | 2022-09-23 14:57 | MR ---
EXAMINATION TYPE: MR MRCP DATE OF EXAM: 09/23/2022 COMPARISON: Correlation CT chest 09/21/2022 HISTORY: 87-year-old female elevated LFT's/gallstones, Hx of appendectomy and cholecystectomy Technique: Multiplanar multisequence images of the abdomen were acquired without contrast. Highly T2 weighted images of the pancreatic biliary system for MRCP. 3-D reconstructions generated on a [employer] workstation. FINDINGS: The heart is upper limits of normal size without pericardial effusion. No pleural effusion. Incidental moderate bilateral gynecomastia and moderate-sized hiatal hernia. Liver normal size at 13.5 cm. No signal loss on out of phase T1-weighted sequence to suggest any sign ificant fatty infiltration. Gallbladder surgically absent. Bile duct dilated up to 1.3 cm with mild intrahepatic biliary ductal dilatation as well. There is a 1.2 cm stone within the upper bile duct and an additional 1.2 cm stone in the mid bile malick t. Smaller 5 mm stone in the distal bile duct. Main pancreatic duct is normal caliber. The pancreas shows a cystic lesion at the level of the inferi or pancreatic head measuring 1.0 cm wide by 9 mm AP by 1.7 cm craniocaudal. This should be reassessed at a one-year follow-up MRI. There is also nodular thickening of the left adrenal gland measuring 1.6 cm. On out of phase T1-weigh kisha sequence, it appears to lose signal. Adrenal hyperplasia or underlying benign adrenal adenoma is suspected. However, given the very small size, this can also be reassessed at the one-year follow-up. A couple 1 cm and smaller renal cysts on the right. No hydronephrosis on either side. No ascites fluid, upper abdominal lymphadenopathy, or gross bowel abnormality is seen. IMPRESSION: 1. Choledocholithiasis. Bile duct is dilated up to 1.3 cm with mild intrahepatic biliary ductal dilat ation as well. Three bile duct stones are present, two of which measure 1.2 cm and a smaller distal d uct stone measuring 5 mm. 2. Patient is status post cholecystectomy. 3. Left adrenal nodularity measuring 1.6 cm. Suspect either adrenal hyperplasia or benign adrenal jaleesa noma. One-year follow-up CT or MRI to ensure stability. 4. A 1.7 cm cystic lesion of the inferior pancreatic head also warrants a one year follow-up MRI. If stable at that time, no further follow-up would be needed. 5. Incidental: Moderate sized hiatal hernia.
[2022-09-24] MEDS: NITROGLYCERIN OINT 1 INCH/GM PACKET TOPICAL SCH ×5 (01:24→23:54)
[2022-09-24 05:12] LABS: HCT 34.5 % (34.0-46.0); HGB 11.6 gm/dL (11.4-16.0); MCH 32.4 pg (25.0-35.0); MCHC 33.5 g/dL (31.0-37.0); MCV 96.6 fL (80.0-100.0); Platelet Count 166 k/uL (150-450); RBC 3.57 m/uL (3.80-5.40); RDW 12.7 % (11.5-15.5); WBC 6.2 k/uL (3.8-10.6)
[2022-09-24 05:28] LABS: Calcium 8.3 mg/dL (8.4-10.2); Magnesium 1.7 mg/dL (1.6-2.3); Potassium 3.9 mmol/L (3.5-5.1); Prothrombin Time 10.3 sec (9.0-12.0); Total Protein 5.5 g/dL (6.3-8.2)
[2022-09-24] MEDS: PANTOPRAZOLE 40 MG TABLET PO SCH ×2 (06:12→09:17)
[2022-09-24] MEDS: atenoloL 50 MG TAB PO SCH (09:17)
[2022-09-24] MEDS: DILTIAZEM ORAL 30 MG TAB PO SCH ×3 (09:17→21:19)
[2022-09-24] MEDS: lisinopriL 5 MG TAB PO SCH (09:17)
[2022-09-24] MEDS: LEVOTHYROXINE 75 MCG TAB PO SCH (09:17)
[2022-09-24] MEDS ORDERED: LEVOFLOXACIN 500MG-D5W PMX 500 MG in DEXTROSE/WATER 1 100ML.BAG IVPB SCH (13:00)
[2022-09-24] MEDS ORDERED: INDOMETHACIN 50MG SUPPOSITORY RECTAL ONE ×2 (13:00→14:48)
[2022-09-24] MEDS ORDERED: LIDOCAINE 2% INJ 20 MG/ML (2 ML VIAL) ONE (14:26)
[2022-09-24] MEDS ORDERED: PROPOFOL 10 MG/ML 20 ML VIAL IV ONE (14:26)
[2022-09-24] MEDS ORDERED: KETAMINE 10 MG/ML 20 ML VIAL ONE (14:26)
[2022-09-24] MEDS ORDERED: MIDAZOLAM 2 MG/2 ML VIAL ONE (14:26)
[2022-09-24] MEDS ORDERED: SODIUM CHLORIDE 0.9% 500 ML 500 ML IV ONE (14:38)
[2022-09-24] MEDS ORDERED: LEVOFLOXACIN 750MG-D5W PMX 750 MG/150 ML BAG IVPB ONE (14:45)
[2022-09-24] MEDS ORDERED: IOPAMIDOL-300 50ML BTL MISCELLANE ONE ×2 (14:51)
--- NOTE | 2022-09-24 15:21 | P.PCN ---
Date of Procedure: 09/24/22 Procedure(s) Performed: Brief history: Patient is a 87 year-old pleasant lady admitted hospital with severe epigastric pain of 1 day duration. She is been having intermittent episodes of epigastric pain on and off for the last several years. During this hospital admission she was noted to have acute elevation of serum transaminases and bilirubin up to 4.2. She had an MRCP done that showed 3 stones in the common bile duct largest measuring 1.2 cm in size. She is hence scheduled for an ERCP for CBD stomach extraction. Procedure performed: ERCP with biliary sphincterotomy and balloon stone extraction Preoperative diagnoses: Epigastric pain/elevated LFTs/MRCP revealing CBD stones IV sedation per anesthesia: Procedure: After informed consent was obtained from the patient and after the risks benefits and complications including bleeding perforation and pancreatitis explained in detail the patient was brought into the endoscopy unit. The patient was placed in prone position and IV conscious sedation was administered by anesthesia under continuous monitoring. The Olympus side-viewing duodeno scope was then inserted into the mouth and esophagus intubated without any difficulty. The scope was gradually advanced into the stomach and duodenum. The major papilla was identified without any difficulty. Initial cannulation resulted in opacification of the common bile duct. It appeared dilated measuring 1.2 cm in diameter. 2 filling defects were noted measuring 1 m incisors. At this time a biliary sphincterotomy was performed at 11 o'clock position and was extended to 1.5 cm in length. Following this using a 15 mm balloon catheter the CBD stones were extracted with some difficulty. Occlusion cholangiogram was performed and no other filling defects were noted. The pancreatic duct was intentionally not cannulated. Patient tolerated the procedure well. Impression: Dilated common bile duct measuring 1.2 cm in diameter with 2 filling defects noted measuring 1 mm in size, status post biliary sphincterotomy and balloon stone extraction as described above and significant amount of sludge and 2 stones were extracted. Pancreatic duct intentionally not cannulated Recommendations: The findings of this examination were discussed with the patient as well as a family. She'll be placed on clear liquid diet today. Repeat labs in the morning. If she is stable she can be discharged home tomorrow morning. Outpatient follow-up in 2 weeks.
--- NOTE | 2022-09-24 16:41 | FL ---
EXAMINATION TYPE: FL ERCP DATE OF EXAM: 09/24/2022 FLUOROSCOPY Fluoroscopy time of 2 minutes 13 seconds was used during ERCP for intervention of CBD stones. 7 imag e/s document/s the procedure.
--- NOTE | 2022-09-24 17:14 | P.PN ---
Subjective Progress Note Date: 09/24/22 Principal diagnosis: abdomen and chest pain Doing well. No abdominal pain, no n/v. No fevers. Objective - Vital Signs Vital signs: Vital Signs Temp 98.0 F 09/24/22 04:49 Pulse 61 09/24/22 04:49 Resp 16 09/24/22 04:49 BP 146/66 09/24/22 04:49 Pulse Ox 96 09/24/22 04:49 FiO2 Intake & Output 09/23/22 09/24/22 09/24/22 18:59 06:59 18:59 Intake Total 720 300 Balance 720 300 Intake: IV 300 Oral 720 Other: Voiding Method Toilet Toilet # Voids 0 2 - Exam Constitutional: No acute distress, conversant, pleasant Eyes:Anicteric sclerae, moist conjunctiva, no lid-lag, PERRLA, ENMT: Oropharynx clear, no erythema, exudates Neck: Supple, FROM, no masses, or JVD, No carotid bruits, No thyromegaly Lungs: Clear to auscultation, Clear to percussion, Normal respiratory effort, no accessory muscle use Cardiovascular: Heart regular in rate and rhythm, No murmurs, gallops, or rubs, No peripheral edema Abdominal: Soft, Nontender, no guarding, rebound or rigidity, Normoactive bowel sounds, No hepatomegaly, No splenomegaly, No palpable mass Skin: Normal temperature, tone, texture, turgor, no induration, No subcutaneous nodules, No rash, lesions, No ulcers Extremities: No digital cyanosis, No clubbing, Pedal pulses intact and symmetrical, Radial pulses intact and symmetrical, No calf tenderness Psychiatric: Alert and oriented to person, place and time, appropriate affect, intact judgement Neuro: Muscles Strength 5/5 in all 4 extremities, Sensation to light touch grossly present throughout, Cranial nerves II-XII grossly intact, no focal sensory deficits - Labs CBC & Chem 7: 09/24/22 04:36 09/24/22 04:36 Labs: Abnormal Lab Results - Last 24 Hours (Table) 09/24/22 09/24/22 Range/Units 04:36 04:36 RBC 3.57 L (3.80-5.40) m/uL Sodium 135 L (137-145) mmol/L Carbon Dioxide 31 H (22-30) mmol/L Glucose 100 H (74-99) mg/dL Calcium 8.3 L (8.4-10.2) mg/dL AST 45 H (14-36) U/L ALT 131 H (4-34) U/L Alkaline Phosphatase 186 H (38-126) U/L Total Protein 5.5 L (6.3-8.2) g/dL Albumin 3.0 L (3.5-5.0) g/dL Assessment and Plan Plan: Chest pain, ACS ruled out SVT -Seen by cardio -Chest x-ray, CTA chest negative for any acute abnormalities -Started on cardizem due to having runs of SVT, continue b-malu. -Continue telemetry Acute hepatitis with jaundice. Cholelithiasis Obstructive jaundice Elevated LFTs -Sec to biliary stone -Hepatitis panel negative -GI consulted, discussed MRCP with radiologist, showing multiple bile duct stones and CBD dilation up to 1.3cm, d/w GI, going for ERCP today Hypertension Hypothyroidism -Medications reviewed and reconciled Surrogate decision-maker: CODE STATUS: Full code DVT prophylaxis: Subcu heparin Anticipated discharge date: am Anticipated discharge place: Home
[2022-09-24] MEDS: CHOLECALCIFEROL 25 MCG (1000 IU) TABLET PO SCH (18:20)
[2022-09-24] MEDS: ASPIRIN 81 MG PO SCH (18:20)
[2022-09-24 20:21] VITALS: RESP 16
[2022-09-25] MEDS: NITROGLYCERIN OINT 1 INCH/GM PACKET TOPICAL SCH (06:05)
[2022-09-25] MEDS: LEVOTHYROXINE 75 MCG TAB PO SCH (06:27)
[2022-09-25] MEDS: PANTOPRAZOLE 40 MG TABLET PO SCH (06:27)
[2022-09-25] MEDS: DILTIAZEM ORAL 30 MG TAB PO SCH (09:53)
[2022-09-25] MEDS: atenoloL 50 MG TAB PO SCH (09:53)
[2022-09-25] MEDS: CHOLECALCIFEROL 25 MCG (1000 IU) TABLET PO SCH (09:53)
[2022-09-25] MEDS: lisinopriL 5 MG TAB PO SCH (09:53)
[2022-09-25] MEDS: ASPIRIN 81 MG PO SCH (09:54)
[2022-09-25 10:40] VITALS: BP 145/68; PULSE 69; TEMP 97.8
--- NOTE | 2022-09-25 14:34 | P.DS ---
Providers Date of admission: 09/21/22 12:58 Expected date of discharge: 09/25/22 Attending physician: Leanna Rendon MD Consults: 09/21/22 12:58 Consult Physician Urgent Consulting Provider: [facility] Consult Reason/Comments: Chest pain Do you want consulting provider notified?: Yes 09/21/22 12:59 Consult Physician Urgent Consulting Provider: Leonarda Hinkle Consult Reason/Comments: Hepatitis Do you want consulting provider notified?: Yes Primary care physician: Jose Burk MD Hospital Course: Patient is a history of hypertension and hypothyroidism presenting with sudden onset right lower chest pain that started last night. It was radiating to the back as well as her right shoulder. She had some difficulty taking deep breaths. She denies any palpitations or lightheadedness, abdominal pain, nausea, vomiting, diarrhea, or constipation. Denies any urinary complaints. She recently traveled to [facility]. He denies any sick contact s. She denies any alcohol use, illicit drug use, heavy Tylenol use, or smoking history In the ED, she was hypertensive up to 197/104, respiratory signs were otherwise unremarkable.her lab work showed WBC count of 11.6, AST 863, ALT 537, ALP 309, bilirubin 2.8. D-dimer elevated to 1.83, negative troponin 2, COVID-19 negative. EKG shows normal sinus rhythm. CTA negative for PE. Patient was admitted to the hospital, was evaluated by GI. Hepatitis panel came back negative. Liver ultrasound was unremarkable. Due to elevated bilirubin GI recommended MRCP which showed dilated bile duct and cholelithiasis. Patient was taken for ERCP by GI where she had stones extraction with sphincterotomy. After that she did well. Her LFTs and bilirubin trended down. She did not have any further episodes of pain. Troponin was negative 3, case was discussed with cardiology service, echocardiogram was done. It showed mild concentric LVH with normal EF. Patient did have some episodes of SVT, she was initiated by cardiology on Cardizem by mouth. Patient will follow-up with dishwasher preparer in the office. She was cleared by cardiology for discharge. She was told to follow with her primary care doctor to follow her LFTs. She will be discharged home in stable condition. Patient was seen and examined [id number] on the day of discharge 12/3 Time for discharge 35 minutes. Plan - Discharge Summary New Discharge Prescriptions: New Diltiazem Oral [Cardizem Oral] 30 mg PO TID #90 tab Continue lisinopriL [Zestril] 5 mg PO DAILY Levothyroxine Sodium [Synthroid] 75 mcg PO DAILY atenoloL [Tenormin] 50 mg PO DAILY 30 Days #30 tab Acetaminophen Tab [Tylenol] 500 mg PO Q6H PRN PRN Reason: Pain Or Fever > 100.5 Cholecalciferol [Vitamin D3 (25 Mcg = 1000 Iu)] 25 mcg PO DAILY Discontinued Vit C/E/Zn/Coppr/Lutein/Zeaxan [Preservision Areds 2 Softgel] 1 cap PO DAILY Discharge Medication List Levothyroxine Sodium [Synthroid] 75 mcg PO DAILY 07/15/14 [History] lisinopriL [Zestril] 5 mg PO DAILY 07/15/14 [History] atenoloL [Tenormin] 50 mg PO DAILY 30 Days #30 tab 08/13/19 [Rx] Acetaminophen Tab [Tylenol] 500 mg PO Q6H PRN 09/21/22 [History] Cholecalciferol [Vitamin D3 (25 Mcg = 1000 Iu)] 25 mcg PO DAILY 09/21/22 [History] Diltiazem Oral [Cardizem Oral] 30 mg PO TID #90 tab 09/22/22 [Rx] Follow up Appointment(s)/Referral(s): Arnol Amezquita MD [STAFF PHYSICIAN] - 09/28/22 3:45 pm (Tuesday at [facility]) Jose Burk MD [Primary Care Provider] - 09/23/22 8:00 am ( (only available appointment)) Leonarda Hinkle MD [STAFF PHYSICIAN] - 1 Week Patient Instructions/Handouts: Chest Pain (DC), Hypomagnesemia (DC) Discharge Disposition: HOME SELF-CARE
== END 2022-09-25 12:14 | disposition home or self-care (01) | DRG 445 ==
LOC: EC 08:05 → 3SCARD 12:58
PROVIDERS: ADMIT Family Medicine; ATTEND Family Medicine
PROC: 0FC98ZZ Extirpation of Matter from Common Bile Duct, Via Natural or Artificial Opening Endoscopic (ICD-10-PCS; principal; 2022-09-24 07:30)
PROC: BF101ZZ Fluoroscopy of Bile Ducts using Low Osmolar Contrast (ICD-10-PCS; principal; 2022-09-24 07:30)
DX: K80.50 Calculus of bile duct without cholangitis or cholecystitis without obstruction (principal); B17.9 Acute viral hepatitis, unspecified; I47.1 Supraventricular tachycardia; J98.11 Atelectasis; E03.9 Hypothyroidism, unspecified; E83.42 Hypomagnesemia; M19.90 Unspecified osteoarthritis, unspecified site; I10 Essential (primary) hypertension; R79.1 Abnormal coagulation profile; K21.00 Gastro-esophageal reflux disease with esophagitis, without bleeding; Z79.890 Hormone replacement therapy; Z79.899 Other long term (current) drug therapy; Z90.49 Acquired absence of other specified parts of digestive tract; Z20.822 Contact with and (suspected) exposure to COVID-19
CPT/HCPCS: 36415; 43262; 43264; 71046; 71275; 74181; 74330; 76705; 80053; 80061; 80074; 82150; 83690; 83735; 84484; 85025; 85027; 85379; 85610; 85730; 87635; 93005; 93306; 94760; 96361; 96365; 96366; 96372; 96375; 99285

== ENCOUNTER 2024-06-02 20:25 | Emergency (ER) | payer MEDICARE ==
[2024-06-02] MEDS ORDERED: cloNIDine HCL 0.2 MG TAB ONE (21:32)
--- NOTE | 2024-07-03 09:07 | XR ---
EXAM: XR Chest, 2 Views CLINICAL HISTORY: increased hypertension TECHNIQUE: Frontal and lateral views of the chest. COMPARISON: No relevant prior studies available. FINDINGS: Lungs:Unremarkable. No consolidation. Pleural space:Unremarkable. No pneumothorax. Heart:Unremarkable. No cardiomegaly. Mediastinum: Moderate hiatal hernia. Bones/joints:Unremarkable. No acute fracture. IMPRESSION: Moderate hiatal hernia. Radiologist: Nba Golden MD Electronically Signed: 06/03/24 00:58 Study ready at 22:16 and initial results transmitted at 00:58 MTDD
== END 2024-06-03 02:34 | disposition home or self-care (01) ==
LOC: EC 20:25
DX: I10 Essential (primary) hypertension (principal)
CPT/HCPCS: 71046; 93005; 99284

== ENCOUNTER → 2025-01-01 | Outpatient (CLI) | payer MEDICARE ==
[2025-01-01 09:18] LABS: HCT 43.1 % (34.0-46.0); HGB 13.4 gm/dL (11.4-16.0); MCH 30.4 pg (25.0-35.0); MCHC 31.1 g/dL (31.0-37.0); MCV 97.8 fL (80.0-100.0); Mean Platelet Volume 8.3; Platelet Count 229 k/uL (150-450); RBC 4.41 m/uL (3.80-5.40); RDW 13.1 % (11.5-15.5); WBC 7.9 k/uL (3.8-10.6)
[2025-01-01 15:20] LABS: BUN/Creat Ratio 20.75 Ratio (12.00-20.00); Blood Urea Nitrogen 16.6 mg/dL (9.0-27.0); Calcium 9.5 mg/dL (8.7-10.3); Carbon Dioxide 27.4 mmol/L (21.6-31.8); Chloride 105 mmol/L (96-109); Chol/HDL Ratio 3.03 Ratio; Glucose 98 mg/dL (70-110); LDL Cholesterol,Calculated 124.6 mg/dL (0.0-131.0); Potassium 4.3 mmol/L (3.5-5.5); Sodium 141 mmol/L (135-145); VLDL Calculation 19.36 mg/dL (5.00-40.00)
== END | disposition home or self-care (01) ==
LOC: LABWHC1 08:27
PROVIDERS: ATTEND Internal Medicine
DX: Z00.00 Encounter for general adult medical examination without abnormal findings (principal); I12.9 Hypertensive chronic kidney disease with stage 1 through stage 4 chronic kidney disease, or unspecified chronic kidney disease; N18.31 Chronic kidney disease, stage 3a; E03.9 Hypothyroidism, unspecified; R73.01 Impaired fasting glucose
CPT/HCPCS: 36415; 80048; 80061; 83036; 84443; 85027